=== PATIENT | female | born 1935 | race Caucasian/White ===

== ENCOUNTER 2017-03-17 10:04 | Inpatient (IN) | payer MEDICARE, BC ==
[~2017-03-17] VITALS: Ht 162.6 cm; Wt 95.0 kg
[~2017-03-17 10:04] MED LIST: ADVAIR 250/5028 PUFF; ADVIL PM 38 MG-1 TAB PO; AMLODIPINE10 MG PO; ASPERDRINK81 MG PO; ASPIRIN 325MG325 MG PO; AZO CRANBERRY250 MG PO; B12 INJ.,1000 MCG/M IM; BIOFREEZE118 ML TP; BREO ELLIPTA 21 EACH IH; CEFDINIR300 MG PO; CEFTIN 250MG T250 MG PO; CELEBREX 200MG200 MG PO; CENTRUM SILVER1 TAB PO; CLARITIN 10MG T10 MG PO; CLOPIDOGREL75 M1 PO; COLACE CLEAR50 MG PO; FERROUS SULFAT325 M2 PO; FLONASE 50 MCG16 GM; FUROSEMIDE 20MG20 MG FT; GABAPENTIN 400400 MG PO; GABAPENTIN100 M1; GENTLE LAXATIVE10 MG PR; IPRATROPIUM BROM3 M1 IH; KETOROLAC0.03 ML/DR OP; LEVAQUIN 750 M750 MG PO; LINZESS290 MCG PO; MAALOX ADVANCE355 ML; MACROBID100 M3 PO; MELATONIN1 MG PO; METFORMIN HCL1000 MG PO; METFORMIN1000 MG PO; MILK OF MA400 MG/51 PO; MIRALAX(PO17 GM/1 PA PO; NITROSTAT0.4 MG SL; NIZORAL 2%15 GM/TUBE TP; NYSTATIN C30 GM/TUBE EX; Novolog100 U/ML SQ; OMEGA 31000 MG PO; OMEPRAZOLE20 MG PO; OSCAL 500MG. T500 MG PO; POTASSIUM CHLO10 ME3 PO; PRAVASTATIN 40M40 MG PO; PRESERVISION A1 EACH PO; SILTUSSIN100 MG/51 PO; SYSTANE 0.3-0.1 EACH OP; TRAMADOL 50MG T50 M1 PO; TRAMADOL 50MG T50 MG PO; TRAZODONE100 MG; TRAZODONE100 MG PO; TYLENOL325 MG PO; ULTRAM50 MG; VITAMIN C500 M1 PO; VOLTAREN100 GM TP; ZITHROMAX 250M250 MG PO; ZOFRAN ODT4 MG
[2017-03-17 10:07] VITALS: BP 135/50
--- NOTE | 2017-03-17 10:23 | Emergency Room Report ---
History of Present Illness Time Seen by [id number] Presenting Problem in Triage Pt arrived:Ambulance Stretcher Presenting Problem:PT BROUGHT IN FOR LETHARGY, COUGH, LOW O2 SAT Onset of symptoms date/time:/ or onset unknown for:MEDICAL HX UNKNOWN Treatment Prior to Arrival: O2 DUONEB SALES REP Provided by:FUNNEL COATER Sepsis Risk Assessment: Temp: 100.0 B/P: 135/50 MAP: 78 Pulse: 105 Resp: 24 Recent fever? N Clinical Suspician of Infection? N Mental Status: 1 - Regular (Normal Baseline) Sepsis Risk:Possible Sepsis Risk Have you (or family members/close friends) recently traveled outside the [place]? N If Yes, where/when: Have you had exposure to infectious disease within the past month? N TB? Other? Specify: Comment [place] [facility] [place] saturation. She tells me that she has had a cough for 3-4 days and has shortness of breath that began today. She denies fever or chest pain. She denies rhinorrhea or sore throat. She denies vomiting. She was admitted to this hospital in December for 3 days due to pneumonia. Symptoms are the same now. She has a history of a stroke with LEFT hemiparesis and has a suprapubic catheter. ALLERGIES Coded Allergies: No Known Allergies (08/14/15) Home Medications Active Scripts Levofloxacin (Levaquin 750mg) 750 MG PO DAILY #4 TAB Prov: 12/24/16 ALBUTEROL-IPRATROPIUM (Iprat-Albut 0.5-3(2.5) MG/3 Ml) 3 ML IH QID #60 NEB Prov: 12/24/16 ASPIRIN (Aspirin 325MG) 325 MG PO DAILY #30 TAB Ref 5 Prov: 09/01/13 CLOPIDOGREL BISULFATE (Clopidogrel) 75 MG PO DAILY #30 TAB Ref 5 Prov: 09/01/13 Reported Medications CRANBERRY FRUIT CONCENTRATE (Azo Cranberry) 250 MG PO DAILY Bisacodyl (Laxative Suppository) 1 SUPP OR DAILYP PRN CONSTIPATION Celecoxib (Celebrex 200MG) 200 MG PO DAILY Loratadine (Claritin 10MG) 10 MG PO DAILY Docusate Sodium (Colace Clear) 50 MG PO DAILY ALBUTEROL-IPRATROPIUM (Iprat-Albut 0.5-3(2.5) MG/3 Ml) 1 NEB IH BID GABAPENTIN (Gabapentin) 400 MG PO TID Linaclotide (Linzess 290MCG) 290 MCG PO DAILY Magnesium Hydroxide (Milk Of Magnesia U/D 30ML) 30 ML PO DAILYP PRN CONSTIPATION POLYETHYLENE GLYCOL (Miralax) 17 GM PO DAILY Nitroglycerin (Nitrostat) 0.4 MG SL DAILYP PRN CHEST PAIN INSULIN ASPART (Novolog) 0 SQ QID Omeprazole (Omeprazole 20MG) 20 MG PO DAILY Tramadol Hcl (Tramadol 50MG) 50 MG PO BID Fluticasone Propionate (Flonase 50 Mcg Nasal [place]) 2 SPRAY NA QHS Ketorolac Tromethamine (Ketorolac 0.5% Ophth Soln 5ML) 0.4 ML OP QID Ascorbic Acid (Vitamin C) 500 MG PO DAILY Fluticasone/Vilanterol (Breo Ellipta 200-25 Mcg INH) 1 PUFF IH DAILY Trazodone Hcl (Trazodone HCl) 100 MG PO QHS Melatonin 1 MG PO QHS Diclofenac Sodium (Voltaren) 2 GM TP BIDP PRN apply to any painful joint Menthol (Biofreeze) 118 ML TP TIDP PRN shoulders, wrist, thumb prn Ketoconazole (Nizoral 2% Cream; 15GRAM Tube) 2 EACH TP BIDP PRN under neck NYSTATIN (Nystatin Cr 100,000 Units/Gm 30GM) 15 GM EX TIDP PRN YEAST Amlodipine Besylate (Amlodipine) 10 MG PO DAILY PRAVASTATIN SODIUM (Pravastatin Sodium) 20 MG PO QHS Vit A/Vit C/Vit E/Zinc/Copper (Preservision Areds Tablet) 1 EACH PO DAILY Vitamin B12 (Cyanocobalamin Injection) 1,000 MCG IM WEEKLY Ferrous Sulfate (Ferrous Sulfate 325MG) 325 MG PO DAILY METFORMIN HCL (Metformin 1000MG) 1,000 MG PO BID TRAMADOL HCL (Tramadol) 50 MG PO QIDP PRN PAIN Diphenhydramine Citrate/Ibup (Advil Pm 38 Mg-200 Mg) 1 TAB PO QHSP PRN INSOMNIA/ PAIN Guaifenesin (Siltussin SA) History Medical History General CAD? Yes Angina: No [place]: No Hypertension? Yes Hyperlipidemia? Yes CHF? No DVT? No PE? No COPD? No Asthma? No Anemia? No GERD? No Gastric ulcers? No GI Bleed? No Hernia? No Thyroid Problems? No Hypothyroidism? No CVA? Yes Seizures? No Diabetes? Yes Insulin Dependent: No Insulin Pump: No Home FSBS? Yes Renal Insuffiency? No End Stage Renal Disease? No UTI? Yes Stones? No BPH? No GB Disease: Yes Nephritic Syndrome? No Asplenia? No Hepatitis? No Sickle Cell Disease? No Arthritis? Yes Migraines? No Cataracts? No Glaucoma? No MRSA? No HIV? No TB? No Anxiety? No Depression? No Cancer? Yes Site: SCC and BCC skin lesions More? No Immunization Hx DT/Tetanus > 10 Years Ago Flu 2012-FSN Pneumonia Received In Past Surgical Hx Previous Surgery?Y GALLBLADDER Hernia Repair THUMB Family History Family Hx Diabetes No CAD No Hypertension Yes Hyperlipidemia No Cancer Yes TB No Social History Smoking Hx Smoker: Former Smoker Tobacco: Yes Type Cigarettes Packs/day N/A Alcohol Alcohol: No Review of Systems All Other Systems Reviewed and Negative Constitutional denies fever Respiratory cough, shortness of breath Cardiovascular denies chest pain Gastrointestinal denies abdominal pain, denies diarrhea, denies vomiting Physical Exam Vital Signs Vital Signs Date Time Temp Pulse Resp B/P Pulse O2 O2 Flow FiO2 Ox Delivery Rate 03/17 1211 99.7 88 24 122/62 97 3 03/17 1110 98 24 129/57 97 3 03/17 1036 102 24 139/67 96 3 03/17 1030 84 03/17 1007 100.0 105 24 135/50 83 General Appearance alert and conversant. Debilitated. LEFT hemiparesis. Eye Exam - bilateral eye normal exam, bilateral eye PERRL, bilateral eye EOMI Ear, Nose, Throat hearing grossly normal, normal ENT inspection Neck normal inspection, non-tender, supple, full range of motion Respiratory Status Yes: trachea midline, chest symmetrical, non tender chest. No: respiratory distress. Lung Sounds bilateral: rhonchi. 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 No Results/Orders Laboratory Tests 03/17/17 1010: Lactic Acid 1.5 03/17/17 1010: Sodium 138, Potassium 3.9, Chloride 100, Carbon Dioxide 30, BUN 15, Creatinine 1.0, Estimated Creat Clear 78, Estimated GFR (MDRD) 53 L, Glucose 154 H, Calcium 8.9, Total Bilirubin 0.6, AST 15, ALT 20, Alkaline Phosphatase 119 H, Creatine Kinase 79, CK-MB (CK-2) Rel Index 0.6, CK and CKMB Interp < 0.5, Troponin I < 0.02, Total Protein 8.3 H, Albumin 2.8 L, Globulin 5.5 H, Albumin/Globulin Ratio 0.5 L, WBC 17.2 H, RBC 4.21, Hgb 11.5 L, Hct 36.8 L, MCV 87.5, RDW 14.8, Plt Count 344, MPV 7.7, Gran % 75.9, Gran # 13.1 H, Total Counted 100, Lymphocytes % 14.7, Monocytes % 8.1, Eosinophils % 0.9, Basophils % 0.3, Neutrophils 70, Lymphocytes (Manual) 19, Lymphocytes # 2.5, Monocytes ( Manual) 10 H, Monocytes # 1.4 H, Eosinophils # 0.2, Eosinophils # (Manual) 1, Basophils # 0.1, Platelet Estimate NORMAL, Hypochromasia 1+, PUBS MCHC 31.4 L, MCH 27.4 Current Medication Orders Sig/Marta Start time Last Medication Dose Route Stop Time Status Admin Amlodipine Besylate 10 MG DAILY 03/18 900 AC PO Clopidogrel Bisulfate 75 MG DAILY 03/18 900 AC PO Levofloxacin/Dextrose 150 ML DAILY 03/18 900 AC IV 03/22 1030 Cefepime HCl 1 GM Q12 03/17 2100 AC Sodium Chloride 50 ML IV Pravastatin Sodium 20 MG QHS 03/17 2100 AC PO Albuterol/Ipratropium 3 ML QIDRT 03/17 1400 AC 03/17 INH 1310 Vancomycin HCl 2,000 MG Q24H 03/17 1300 AC Sodium Chloride 250 ML IV Diagnostic Test (Pha) 1 EACH W/MEALS&HS 03/17 1200 AC FS 05/16 1159 Insulin Human [rDNA See Dose W/MEALS&HS 03/17 1200 AC origin] Insts (1) SC Acetaminophen 650 MG Q4HP PRN 03/17 1145 AC PO Influenza Virus 0.5 ML PRN PRN 03/17 1145 AC Vaccine Quadrival IM Miscellaneous 1 EACH CONSULT PHARMACY 03/17 1145 AC Information * 03/17 2335 Nicotine 21 MG DAILYP PRN 03/17 1145 AC TD Sodium Chloride 10 ML PRN PRN 03/17 1145 AC IV Cefepime HCl 2 GM ONCE ONE 03/17 1115 DC Sodium Chloride 100 ML IV 03/17 1144 Levofloxacin/Dextrose 150 ML ONCE ONE 03/17 1115 DCr 03/17 IV 03/17 1244 1109 Miscellaneous 1 EACH CONSULT PHARMACY 03/17 1115 AC Information * 03/17 2313 Albuterol/Ipratropium 3 ML ONCE ONE 03/17 1015 DC 03/17 INH 03/17 1016 1021 Sodium Chloride 10 ML PRN PRN 03/17 1015 AC IV 03/18 1011 Dose Instructions: (1)Insulin Human [rDNA origin]: SEE ADMIN CRITERIA FOR MEDIUM INTENSITY Orders Procedure Date/time Status DIET-2000 CALORIE ADA 03/17 D Active PHARMACIST CONSULT 03/17 1137 Active Decision to admit 03/17 1114 Active CULTURE, SPUTUM 03/17 1113 Active OXYGEN PER NURSE 03/17 1029 Active RT Aerosol Treatment, Provide 03/17 1023 Active ELECTROCARDIOGRAM REQUEST 03/17 1012 Active RT REQUEST DUONEB 03/17 1012 Active IV SALINE LOCK 03/17 1012 Active CULTURE, BLOOD 03/17 1012 Active LACTIC ACID 03/17 1012 Complete CBC WITH AUTO DIFF 03/17 1012 Complete CARDIAC ENZYMES 03/17 1012 Complete CHEM 12 PROFILE 03/17 1012 Complete DIFFERENTIAL-WBC 03/17 1010 Complete ADMIT PATIENT 03/17 UNK Active 12 LEAD EKG-BESSON (INITIAL) 03/17 UNK Active PULSE OXIMETRY REQUEST 03/17 UNK Active OXYGEN REQUEST 03/17 UNK Active RT REQUEST DUONEB 03/17 UNK Active VITAL SIGNS 03/17 UNK Active POM NURSE BERONICA HOSE ORDER 03/17 UNK Active IV SALINE LOCK 03/17 UNK Active CODE STATUS 03/17 UNK Active PATIENT ACTIVITY ORDER 03/17 UNK Active CM/EKG CM/EKG Comments EKG interpreted by James Villalba MD: Rhythm: sinus tachycardia Rate: 104 [place]: normal Ectopy: none Conduction: normal ST Segment Changes: none T Wave Changes: none Q Waves: none No evidence of acute ischemia or injury XRAY/CT/US XRAY/CT/US XRAY chest Comment Chest x-ray interpreted by James Villalba M.D. Lingular and RIGHT basilar infiltrate Progress - 11:10 AM: I have discussed the case with Dr. Breen for Dr. Bangura who agrees to admit the patient to the hospital. We discussed the patient's clinical information, including history, exam, laboratory and radiology results and ED course. Per hospital procedure, I will write temporary bridge inpatient orders on the patient. Specific orders requested by the admitting physician: Admit to Dr. Breen. Triple antibiotic coverage. Departure Departure Disposition Still a Patient Clinical Impression Primary Impression: Healthcare-associated pneumonia Secondary Impressions: Acute respiratory failure with hypoxia Condition STABLE Referrals Marian Bangura MD (PCP/Family) ED Critical Care Critical Care Yes Time spent 30-74 min Vital system(s) involved: Respiratory Failure I was present at bedside for Coordinating pt's care, Interpreting EKGs/Strips , During my initial exam, Reviewing lab results, Reviewing old records, Discussing pt condition, Examining radiographs at 1318
[2017-03-17 10:33] LABS: HEMOGLOBIN 11.5 g/dL (12.2-16.2); LYMPH # 2.5 K/mm3 (0.7-4.5); LYMPH % 14.7 % (10-50.0)
--- NOTE | 2017-03-17 10:53 | RADIOLOGY REPORT PS360 ---
CHEST-PORTABLE COMPARISON: Portable upright chest 12/23/2016 HISTORY: Shortness of breath and cough TECHNIQUE: Portable upright chest FINDINGS: The patient is rotated to the left somewhat however the appears be diffuse opacity at left base and left perihilar region. There is partial silhouetting of the left heart border. The left upper lung field and right lung field are clear. There is suggestion of tapered narrowing or cutoff of the left mainstem bronchus shadow. There is mild generalized cardiomegaly but no vascular congestion. IMPRESSION: Findings suggestive of a left lower lobe pneumonia with probable reactive pleural effusion, suggest clinical correlation follow-up PA and lateral films following treatment and if there is not significant interval improvement and consider follow-up CT scan chest for better evaluation
[2017-03-17 10:59] LABS: BUN 15 mg/dL (7-18)
[2017-03-17 11:00] LABS: GFR (ESTIMATED) 53 ML/MIN (59-); NEUTROPHILS 70 % (42-76)
--- NOTE | 2017-03-17 12:24 | CONSULT NOTE ---
Pharmacokinetic Consult Date of consult: 03/17/17 Time of consult: 1221 Referring provider: DR. LANG Reason for consult: VANCOMYCIN DOSING Allergies: Coded Allergies: No Known Allergies (08/14/15) Home Medications: Active Scripts Levofloxacin (Levaquin 750mg) 750 MG PO DAILY #4 TAB Prov: 12/24/16 ALBUTEROL-IPRATROPIUM (Iprat-Albut 0.5-3(2.5) MG/3 Ml) 3 ML IH QID #60 NEB Prov: 12/24/16 ASPIRIN (Aspirin 325MG) 325 MG PO DAILY #30 TAB Ref 5 Prov: 09/01/13 CLOPIDOGREL BISULFATE (Clopidogrel) 75 MG PO DAILY #30 TAB Ref 5 Prov: 09/01/13 Reported Medications CRANBERRY FRUIT CONCENTRATE (Azo Cranberry) 250 MG PO DAILY Bisacodyl (Laxative Suppository) 1 SUPP CA DAILYP PRN CONSTIPATION Celecoxib (Celebrex 200MG) 200 MG PO DAILY Loratadine (Claritin 10MG) 10 MG PO DAILY Docusate Sodium (Colace Clear) 50 MG PO DAILY ALBUTEROL-IPRATROPIUM (Iprat-Albut 0.5-3(2.5) MG/3 Ml) 1 NEB IH BID GABAPENTIN (Gabapentin) 400 MG PO TID Linaclotide (Linzess 290MCG) 290 MCG PO DAILY Magnesium Hydroxide (Milk Of Magnesia U/D 30ML) 30 ML PO DAILYP PRN CONSTIPATION POLYETHYLENE GLYCOL (Miralax) 17 GM PO DAILY Nitroglycerin (Nitrostat) 0.4 MG SL DAILYP PRN CHEST PAIN INSULIN ASPART (Novolog) 0 SQ QID Omeprazole (Omeprazole 20MG) 20 MG PO DAILY Tramadol Hcl (Tramadol 50MG) 50 MG PO BID Fluticasone Propionate (Flonase 50 Mcg Nasal [place]) 2 SPRAY NA QHS Ketorolac Tromethamine (Ketorolac 0.5% Ophth Soln 5ML) 0.4 ML OP QID Ascorbic Acid (Vitamin C) 500 MG PO DAILY Fluticasone/Vilanterol (Breo Ellipta 200-25 Mcg INH) 1 PUFF IH DAILY Trazodone Hcl (Trazodone HCl) 100 MG PO QHS Melatonin 1 MG PO QHS Diclofenac Sodium (Voltaren) 2 GM TP BIDP PRN apply to any painful joint Menthol (Biofreeze) 118 ML TP TIDP PRN shoulders, wrist, thumb prn Ketoconazole (Nizoral 2% Cream; 15GRAM Tube) 2 EACH TP BIDP PRN under neck NYSTATIN (Nystatin Cr 100,000 Units/Gm 30GM) 15 GM EX TIDP PRN YEAST Amlodipine Besylate (Amlodipine) 10 MG PO DAILY PRAVASTATIN SODIUM (Pravastatin Sodium) 20 MG PO QHS Vit A/Vit C/Vit E/Zinc/Copper (Preservision Areds Tablet) 1 EACH PO DAILY Vitamin B12 (Cyanocobalamin Injection) 1,000 MCG IM WEEKLY Ferrous Sulfate (Ferrous Sulfate 325MG) 325 MG PO DAILY METFORMIN HCL (Metformin 1000MG) 1,000 MG PO BID TRAMADOL HCL (Tramadol) 50 MG PO QIDP PRN PAIN Diphenhydramine Citrate/Ibup (Advil Pm 38 Mg-200 Mg) 1 TAB PO QHSP PRN INSOMNIA/ PAIN Guaifenesin (Siltussin SA) Height (feet): 5 Height (inches): 4.00 Medical History: CAD? Yes Angina: No [place]: No Hypertension? Yes Hyperlipidemia? Yes CHF? No DVT? No PE? No COPD? No Asthma? No Anemia? No GERD? No Gastric ulcers? No GI Bleed? No Hernia? No Thyroid Problems? No Hypothyroidism? No CVA? Yes Seizures? No Diabetes? Yes Insulin Dependent: No Insulin Pump: No Home FSBS? Yes Renal Insuffiency? No UTI? Yes Stones? No BPH? No GB Disease: Yes Nephritic Syndrome? No Asplenia? No Hepatitis? No Sickle Cell Disease? No Arthritis? Yes Migraines? No Cataracts? No Glaucoma? No MRSA? No HIV? No TB? No Anxiety? No Depression? No Cancer? Yes Site: SCC and BCC skin lesions More? No Labs: Laboratory Tests 03/17/17 1010: Lactic Acid 1.5 03/17/17 1010: Sodium 138, Potassium 3.9, Chloride 100, Carbon Dioxide 30, BUN 15, Creatinine 1.0, Estimated Creat Clear 78, Estimated GFR (MDRD) 53 L, Glucose 154 H, Calcium 8.9, Total Bilirubin 0.6, AST 15, ALT 20, Alkaline Phosphatase 119 H, Creatine Kinase 79, CK-MB (CK-2) Rel Index 0.6, CK and CKMB Interp < 0.5, Troponin I < 0.02, Total Protein 8.3 H, Albumin 2.8 L, Globulin 5.5 H, Albumin/Globulin Ratio 0.5 L, WBC 17.2 H, RBC 4.21, Hgb 11.5 L, Hct 36.8 L, MCV 87.5, RDW 14.8, Plt Count 344, MPV 7.7, Gran % 75.9, Gran # 13.1 H, Total Counted 100, Lymphocytes % 14.7, Monocytes % 8.1, Eosinophils % 0.9, Basophils % 0.3, Neutrophils 70, Lymphocytes (Manual) 19, Lymphocytes # 2.5, Monocytes ( Manual) 10 H, Monocytes # 1.4 H, Eosinophils # 0.2, Eosinophils # (Manual) 1, Basophils # 0.1, Platelet Estimate NORMAL, Hypochromasia 1+, PUBS MCHC 31.4 L, MCH 27.4 Microbiology 03/17 1113 SPUTUM: Sputum Culture - ORD 03/17 1113 SPUTUM: Gram Stain - ORD 03/17 1010 BLOOD: Anaerobic Blood Culture - RECD 03/17 1010 BLOOD: Aerobic Blood Culture - RECD 03/17 1010 BLOOD: Anaerobic Blood Culture - RECD 03/17 1010 BLOOD: Aerobic Blood Culture - RECD Problem List: 1. Healthcare-associated pneumonia Plan: BASED ON PATIENT'S FACTORS, RECOMMEND STARTING WITH VANCOMYCIN 2 GM Q24H AT THIS TIME. PATIENT IS ALSO RECEIVING CEFEPIME 1 GM Q12H AND LEVOFLOXACIN 750 MG Q24H WELL. PHARMACY WILL FOLLOW DAILY AND ADJUST APPROPRIATE. DAVIN WALSHD at [id number]
--- NOTE | 2017-03-17 12:58 | HISTORY AND PHYSICAL REPORT ---
History and Physical (FCA) Date of admission: 03/17/17 Chief complaint: SOB History: History of Present Illness: Ms Franklin is an 81 year old female resident of [place] with an extensive medical history to include T2DM, Stroke with left hemiparesis, carotid artery disease, hyperlipidemia, OA, and neurogenic bladder with ellis cath and frequent UTI. She has had a cough for about a week with progressive SOB. She is on daily neb treatments and was hospitalized this past December with pneumonia. This AM O2 sats were in the 70's. She seemed to be more dyspneic. Staff was directed to bring her to [facility] for evaluation. Patient also noted that she was not eating or drinking well. Evaluation in the ER revealed Pneumonia. WBC's were elevated. She was admitted for IV ABX and continued neb TX's. With exam she denies CP but remains SOB with even talking. Past Medical History: Medical History: CAD? Yes Angina: No VA: No Hypertension? Yes Hyperlipidemia? Yes CHF? Yes DVT? No PE? No COPD? No Asthma? No Anemia? Yes GERD? Yes Gastric ulcers? No GI Bleed? No Hernia? No Thyroid Problems? No Hypothyroidism? No CVA? Yes Seizures? No Diabetes? Yes Insulin Dependent: No Insulin Pump: No Home FSBS? Yes Renal Insuffiency? No UTI? Yes Stones? No BPH? No GB Disease: Yes Nephritic Syndrome? No Asplenia? No Hepatitis? No Sickle Cell Disease? No Arthritis? Yes Migraines? No Cataracts? No Glaucoma? No MRSA? No HIV? No TB? No Anxiety? No Depression? No Cancer? Yes Site: SCC and BCC skin lesions More? No Additional hx: neurogenic bladder carotid artery disease Surgical history: Previous Surgery?Y GALLBLADDER Hernia Repair THUMB Medications: Active Scripts Levofloxacin (Levaquin 750mg) 750 MG PO DAILY #4 TAB Prov: 12/24/16 ALBUTEROL-IPRATROPIUM (Iprat-Albut 0.5-3(2.5) MG/3 Ml) 3 ML IH QID #60 NEB Prov: 12/24/16 ASPIRIN (Aspirin 325MG) 325 MG PO DAILY #30 TAB Ref 5 Prov: 09/01/13 CLOPIDOGREL BISULFATE (Clopidogrel) 75 MG PO DAILY #30 TAB Ref 5 Prov: 09/01/13 Reported Medications CRANBERRY FRUIT CONCENTRATE (Azo Cranberry) 250 MG PO DAILY Bisacodyl (Laxative Suppository) 1 SUPP [place] DAILYP PRN CONSTIPATION Celecoxib (Celebrex 200MG) 200 MG PO DAILY Loratadine (Claritin 10MG) 10 MG PO DAILY Docusate Sodium (Colace Clear) 50 MG PO DAILY ALBUTEROL-IPRATROPIUM (Iprat-Albut 0.5-3(2.5) MG/3 Ml) 1 NEB IH BID GABAPENTIN (Gabapentin) 400 MG PO TID Linaclotide (Linzess 290MCG) 290 MCG PO DAILY Magnesium Hydroxide (Milk Of Magnesia U/D 30ML) 30 ML PO DAILYP PRN CONSTIPATION POLYETHYLENE GLYCOL (Miralax) 17 GM PO DAILY Nitroglycerin (Nitrostat) 0.4 MG SL DAILYP PRN CHEST PAIN INSULIN ASPART (Novolog) 0 SQ QID Omeprazole (Omeprazole 20MG) 20 MG PO DAILY Tramadol Hcl (Tramadol 50MG) 50 MG PO BID Fluticasone Propionate (Flonase 50 Mcg Nasal [place]) 2 SPRAY NA QHS Ketorolac Tromethamine (Ketorolac 0.5% Ophth Soln 5ML) 0.4 ML OP QID Ascorbic Acid (Vitamin C) 500 MG PO DAILY Fluticasone/Vilanterol (Breo Ellipta 200-25 Mcg INH) 1 PUFF IH DAILY Trazodone Hcl (Trazodone HCl) 100 MG PO QHS Melatonin 1 MG PO QHS Diclofenac Sodium (Voltaren) 2 GM TP BIDP PRN apply to any painful joint Menthol (Biofreeze) 118 ML TP TIDP PRN shoulders, wrist, thumb prn Ketoconazole (Nizoral 2% Cream; 15GRAM Tube) 2 EACH TP BIDP PRN under neck NYSTATIN (Nystatin Cr 100,000 Units/Gm 30GM) 15 GM EX TIDP PRN YEAST Amlodipine Besylate (Amlodipine) 10 MG PO DAILY PRAVASTATIN SODIUM (Pravastatin Sodium) 20 MG PO QHS Vit A/Vit C/Vit E/Zinc/Copper (Preservision Areds Tablet) 1 EACH PO DAILY Vitamin B12 (Cyanocobalamin Injection) 1,000 MCG IM WEEKLY Ferrous Sulfate (Ferrous Sulfate 325MG) 325 MG PO DAILY METFORMIN HCL (Metformin 1000MG) 1,000 MG PO BID TRAMADOL HCL (Tramadol) 50 MG PO QIDP PRN PAIN Diphenhydramine Citrate/Ibup (Advil Pm 38 Mg-200 Mg) 1 TAB PO QHSP PRN INSOMNIA/ PAIN Guaifenesin (Siltussin SA) Allergies: Coded Allergies: No Known Allergies (08/14/15) Family History: Family history: Postive for: HTN, cancer. Social History: Smoking Hx Tobacco: No Smoker: Former Smoker Type: Cigarettes Packs/day: N/A Are you exposed to second hand No Alcohol: Alcohol: No Hx of Drug Use: Drug Use? No Review of Systems: Constitutional Positive for: weak. ENT No: ear ache, nasal congestion, sore throat. Cardiovascular Positive for: SOLIS. No: chest pain, edema, palpitations. Respiratory Positive for: shortness of air, productive cough (sputum). No: wheezing. GI Positive for: diarrhea. No: abdominal pain, constipation, hematemeis, hematochezia, melena, nausea, vomitting. (female) No: hematuria (ellis cath). Neurological Positive for: headache. No: confusion, dizziness, seizure, syncope. Musculoskeletal Positive for: joint pain. Additional information: has left sided weakness; usually is OOB daily into her wheelchair Physical Exam: Vital signs: 1ST Vital Signs Result Date Time Pulse Ox 83 03/17 1007 B/P 135/50 03/17 [facility] Temp 100.0 03/17 [facility] Pulse 105 03/17 1007 Resp 24 03/17 [facility] O2 Flow Rate 3 03/17 1036 Exam: General appearance: alert, awake, no acute distress Eyes: anicteric, pupils reactive to light ENT: mucous membranes moist, pharynx normal Neck: no carotid bruit, full range of motion, lymphadenopathy (absent), thyroid (normal) Cardiovascular: regular rate & rhythm, murmur Respiratory: coarse rhonchi throughout ABD: no guarding, bowel sounds present, obese Extremities: no peripheral edema, left sided weakness Neuro: alert, oriented, speech clear Lab data: Labs: Laboratory Tests 03/17/17 1010: Lactic Acid 1.5 03/17/17 1010: Sodium 138, Potassium 3.9, Chloride 100, Carbon Dioxide 30, BUN 15, Creatinine 1.0, Estimated Creat Clear 78, Estimated GFR (MDRD) 53 L, Glucose 154 H, Calcium 8.9, Total Bilirubin 0.6, AST 15, ALT 20, Alkaline Phosphatase 119 H, Creatine Kinase 79, CK-MB (CK-2) Rel Index 0.6, CK and CKMB Interp < 0.5, Troponin I < 0.02, Total Protein 8.3 H, Albumin 2.8 L, Globulin 5.5 H, Albumin/Globulin Ratio 0.5 L, WBC 17.2 H, RBC 4.21, Hgb 11.5 L, Hct 36.8 L, MCV 87.5, RDW 14.8, Plt Count 344, MPV 7.7, Gran % 75.9, Gran # 13.1 H, Total Counted 100, Lymphocytes % 14.7, Monocytes % 8.1, Eosinophils % 0.9, Basophils % 0.3, Neutrophils 70, Lymphocytes (Manual) 19, Lymphocytes # 2.5, Monocytes ( Manual) 10 H, Monocytes # 1.4 H, Eosinophils # 0.2, Eosinophils # (Manual) 1, Basophils # 0.1, Platelet Estimate NORMAL, Hypochromasia 1+, PUBS MCHC 31.4 L, MCH 27.4 Microbiology 03/17 1113 SPUTUM: Sputum Culture - ORD 03/17 1113 SPUTUM: Gram Stain - ORD 03/17 1010 BLOOD: Anaerobic Blood Culture - RECD 03/17 1010 BLOOD: Aerobic Blood Culture - RECD 03/17 1010 BLOOD: Anaerobic Blood Culture - RECD 03/17 1010 BLOOD: Aerobic Blood Culture - RECD Radiology results: Results: 03/17/17 CXR IMPRESSION: Findings suggestive of a left lower lobe pneumonia with probable reactive pleural effusion, suggest clinical correlation follow-up PA and lateral films following treatment and if there is not significant interval improvement and consider follow-up CT scan chest for better evaluation Diagnosis(es): 1. Healthcare-associated pneumonia 2. Acute respiratory failure with hypoxia 3. Hemiparesis affecting left side as late effect of cerebrovascular accident Status: Chronic 4. GERD (gastroesophageal reflux disease) 5. Chronic cystitis 6. Neurogenic bladder 7. Type 2 diabetes mellitus Status: Chronic 8. Carotid stenosis, left Status: Acute 9. Acute ischemic stroke Status: Acute 10. Osteoarthritis Status: Chronic 11. Hyperlipemia Status: Chronic 12. Hypertension Status: Chronic Plan: pneumonia protocol with ABX and nebs (Radha Chowdhury APRN) Diagnosis(es): 1. Healthcare-associated pneumonia 2. Acute respiratory failure with hypoxia 3. Hemiparesis affecting left side as late effect of cerebrovascular accident Status: Chronic 4. GERD (gastroesophageal reflux disease) 5. Chronic cystitis 6. Neurogenic bladder 7. Type 2 diabetes mellitus Status: Chronic 8. Carotid stenosis, left Status: Acute 9. Acute ischemic stroke Status: Acute 10. Osteoarthritis Status: Chronic 11. Hyperlipemia Status: Chronic 12. Hypertension Status: Chronic Plan: Patient seen and agree with above note. (Stalin Breen MD) at 1440 at 1750
--- NOTE | 2017-03-17 12:58 | HISTORY AND PHYSICAL REPORT ---
History and Physical (FCA) Date of admission: 03/17/17 Chief complaint: SOB History: History of Present Illness: Ms Franklin is an 81 year old female resident of [place] with an extensive medical history to include T2DM, Stroke with left hemiparesis, carotid artery disease, hyperlipidemia, OA, and neurogenic bladder with ellis cath and frequent UTI. She has had a cough for about a week with progressive SOB. She is on daily neb treatments and was hospitalized this past December with pneumonia. This AM O2 sats were in the 70's. She seemed to be more dyspneic. Staff was directed to bring her to [facility] for evaluation. Patient also noted that she was not eating or drinking well. Evaluation in the ER revealed Pneumonia. WBC's were elevated. She was admitted for IV ABX and continued neb TX's. With exam she denies CP but remains SOB with even talking. Past Medical History: Medical History: CAD? Yes Angina: No IA: No Hypertension? Yes Hyperlipidemia? Yes CHF? Yes DVT? No PE? No COPD? No Asthma? No Anemia? Yes GERD? Yes Gastric ulcers? No GI Bleed? No Hernia? No Thyroid Problems? No Hypothyroidism? No CVA? Yes Seizures? No Diabetes? Yes Insulin Dependent: No Insulin Pump: No Home FSBS? Yes Renal Insuffiency? No UTI? Yes Stones? No BPH? No GB Disease: Yes Nephritic Syndrome? No Asplenia? No Hepatitis? No Sickle Cell Disease? No Arthritis? Yes Migraines? No Cataracts? No Glaucoma? No MRSA? No HIV? No TB? No Anxiety? No Depression? No Cancer? Yes Site: SCC and BCC skin lesions More? No Additional hx: neurogenic bladder carotid artery disease Surgical history: Previous Surgery?Y GALLBLADDER Hernia Repair THUMB Medications: Active Scripts Levofloxacin (Levaquin 750mg) 750 MG PO DAILY #4 TAB Prov: 12/24/16 ALBUTEROL-IPRATROPIUM (Iprat-Albut 0.5-3(2.5) MG/3 Ml) 3 ML IH QID #60 NEB Prov: 12/24/16 ASPIRIN (Aspirin 325MG) 325 MG PO DAILY #30 TAB Ref 5 Prov: 09/01/13 CLOPIDOGREL BISULFATE (Clopidogrel) 75 MG PO DAILY #30 TAB Ref 5 Prov: 09/01/13 Reported Medications CRANBERRY FRUIT CONCENTRATE (Azo Cranberry) 250 MG PO DAILY Bisacodyl (Laxative Suppository) 1 SUPP [place] DAILYP PRN CONSTIPATION Celecoxib (Celebrex 200MG) 200 MG PO DAILY Loratadine (Claritin 10MG) 10 MG PO DAILY Docusate Sodium (Colace Clear) 50 MG PO DAILY ALBUTEROL-IPRATROPIUM (Iprat-Albut 0.5-3(2.5) MG/3 Ml) 1 NEB IH BID GABAPENTIN (Gabapentin) 400 MG PO TID Linaclotide (Linzess 290MCG) 290 MCG PO DAILY Magnesium Hydroxide (Milk Of Magnesia U/D 30ML) 30 ML PO DAILYP PRN CONSTIPATION POLYETHYLENE GLYCOL (Miralax) 17 GM PO DAILY Nitroglycerin (Nitrostat) 0.4 MG SL DAILYP PRN CHEST PAIN INSULIN ASPART (Novolog) 0 SQ QID Omeprazole (Omeprazole 20MG) 20 MG PO DAILY Tramadol Hcl (Tramadol 50MG) 50 MG PO BID Fluticasone Propionate (Flonase 50 Mcg Nasal [place]) 2 SPRAY NA QHS Ketorolac Tromethamine (Ketorolac 0.5% Ophth Soln 5ML) 0.4 ML OP QID Ascorbic Acid (Vitamin C) 500 MG PO DAILY Fluticasone/Vilanterol (Breo Ellipta 200-25 Mcg INH) 1 PUFF IH DAILY Trazodone Hcl (Trazodone HCl) 100 MG PO QHS Melatonin 1 MG PO QHS Diclofenac Sodium (Voltaren) 2 GM TP BIDP PRN apply to any painful joint Menthol (Biofreeze) 118 ML TP TIDP PRN shoulders, wrist, thumb prn Ketoconazole (Nizoral 2% Cream; 15GRAM Tube) 2 EACH TP BIDP PRN under neck NYSTATIN (Nystatin Cr 100,000 Units/Gm 30GM) 15 GM EX TIDP PRN YEAST Amlodipine Besylate (Amlodipine) 10 MG PO DAILY PRAVASTATIN SODIUM (Pravastatin Sodium) 20 MG PO QHS Vit A/Vit C/Vit E/Zinc/Copper (Preservision Areds Tablet) 1 EACH PO DAILY Vitamin B12 (Cyanocobalamin Injection) 1,000 MCG IM WEEKLY Ferrous Sulfate (Ferrous Sulfate 325MG) 325 MG PO DAILY METFORMIN HCL (Metformin 1000MG) 1,000 MG PO BID TRAMADOL HCL (Tramadol) 50 MG PO QIDP PRN PAIN Diphenhydramine Citrate/Ibup (Advil Pm 38 Mg-200 Mg) 1 TAB PO QHSP PRN INSOMNIA/ PAIN Guaifenesin (Siltussin SA) Allergies: Coded Allergies: No Known Allergies (08/14/15) Family History: Family history: Postive for: HTN, cancer. Social History: Smoking Hx Tobacco: No Smoker: Former Smoker Type: Cigarettes Packs/day: N/A Are you exposed to second hand No Alcohol: Alcohol: No Hx of Drug Use: Drug Use? No Review of Systems: Constitutional Positive for: weak. ENT No: ear ache, nasal congestion, sore throat. Cardiovascular Positive for: SOLIS. No: chest pain, edema, palpitations. Respiratory Positive for: shortness of air, productive cough (sputum). No: wheezing. GI Positive for: diarrhea. No: abdominal pain, constipation, hematemeis, hematochezia, melena, nausea, vomitting. (female) No: hematuria (ellis cath). Neurological Positive for: headache. No: confusion, dizziness, seizure, syncope. Musculoskeletal Positive for: joint pain. Additional information: has left sided weakness; usually is OOB daily into her wheelchair Physical Exam: Vital signs: 1ST Vital Signs Result Date Time Pulse Ox 83 03/17 1007 B/P 135/50 [facility] Temp 100.0 03/17 [facility] Pulse 105 03/17 1007 Resp 24 03/17 [facility] O2 Flow Rate 3 03/17 1036 Exam: General appearance: alert, awake, no acute distress Eyes: anicteric, pupils reactive to light ENT: mucous membranes moist, pharynx normal Neck: no carotid bruit, full range of motion, lymphadenopathy (absent), thyroid (normal) Cardiovascular: regular rate & rhythm, murmur Respiratory: coarse rhonchi throughout ABD: no guarding, bowel sounds present, obese Extremities: no peripheral edema, left sided weakness Neuro: alert, oriented, speech clear Lab data: Labs: Laboratory Tests 03/17/17 1010: Lactic Acid 1.5 03/17/17 1010: Sodium 138, Potassium 3.9, Chloride 100, Carbon Dioxide 30, BUN 15, Creatinine 1.0, Estimated Creat Clear 78, Estimated GFR (MDRD) 53 L, Glucose 154 H, Calcium 8.9, Total Bilirubin 0.6, AST 15, ALT 20, Alkaline Phosphatase 119 H, Creatine Kinase 79, CK-MB (CK-2) Rel Index 0.6, CK and CKMB Interp < 0.5, Troponin I < 0.02, Total Protein 8.3 H, Albumin 2.8 L, Globulin 5.5 H, Albumin/Globulin Ratio 0.5 L, WBC 17.2 H, RBC 4.21, Hgb 11.5 L, Hct 36.8 L, MCV 87.5, RDW 14.8, Plt Count 344, MPV 7.7, Gran % 75.9, Gran # 13.1 H, Total Counted 100, Lymphocytes % 14.7, Monocytes % 8.1, Eosinophils % 0.9, Basophils % 0.3, Neutrophils 70, Lymphocytes (Manual) 19, Lymphocytes # 2.5, Monocytes ( Manual) 10 H, Monocytes # 1.4 H, Eosinophils # 0.2, Eosinophils # (Manual) 1, Basophils # 0.1, Platelet Estimate NORMAL, Hypochromasia 1+, PUBS MCHC 31.4 L, MCH 27.4 Microbiology 03/17 1113 SPUTUM: Sputum Culture - ORD 03/17 1113 SPUTUM: Gram Stain - ORD 03/17 1010 BLOOD: Anaerobic Blood Culture - RECD 03/17 1010 BLOOD: Aerobic Blood Culture - RECD 03/17 1010 BLOOD: Anaerobic Blood Culture - RECD 03/17 1010 BLOOD: Aerobic Blood Culture - RECD Radiology results: Results: 03/17/17 CXR IMPRESSION: Findings suggestive of a left lower lobe pneumonia with probable reactive pleural effusion, suggest clinical correlation follow-up PA and lateral films following treatment and if there is not significant interval improvement and consider follow-up CT scan chest for better evaluation Diagnosis(es): 1. Healthcare-associated pneumonia 2. Acute respiratory failure with hypoxia 3. Hemiparesis affecting left side as late effect of cerebrovascular accident Status: Chronic 4. GERD (gastroesophageal reflux disease) 5. Chronic cystitis 6. Neurogenic bladder 7. Type 2 diabetes mellitus Status: Chronic 8. Carotid stenosis, left Status: Acute 9. Acute ischemic stroke Status: Acute 10. Osteoarthritis Status: Chronic 11. Hyperlipemia Status: Chronic 12. Hypertension Status: Chronic Plan: pneumonia protocol with ABX and nebs (Radha Chowdhury APRN) Diagnosis(es): 1. Healthcare-associated pneumonia 2. Acute respiratory failure with hypoxia 3. Hemiparesis affecting left side as late effect of cerebrovascular accident Status: Chronic 4. GERD (gastroesophageal reflux disease) 5. Chronic cystitis 6. Neurogenic bladder 7. Type 2 diabetes mellitus Status: Chronic 8. Carotid stenosis, left Status: Acute 9. Acute ischemic stroke Status: Acute 10. Osteoarthritis Status: Chronic 11. Hyperlipemia Status: Chronic 12. Hypertension Status: Chronic Plan: Patient seen and agree with above note. (Stalin Breen MD) at 1440 at 1750
[2017-03-17 13:17] VITALS: BP 135/76
[2017-03-17 13:23] VITALS: BP 135/76
[2017-03-17 16:11] VITALS: BP 144/76
[2017-03-17 19:34] VITALS: BP 152/64
[2017-03-17 23:47] VITALS: BP 140/72
[2017-03-18] VITALS (8 sets, daily range): BP systolic 138–164; BP diastolic 65–77
--- NOTE | 2017-03-18 07:26 | PHARMACY CLINIC NOTE ---
Patient Demographics Patient Demographics Admission date: 03/17/17 Date: 03/18/17 Time: 07 Allergies Coded Allergies: No Known Allergies (08/14/15) HEIGHT- FT: 5 IN: 4.00 K.275 VTE General Information Labs: Laboratory Tests 03/17 1010 Hematology Hgb (12.2 - 16.2 g/dL) 11.5 L Hct (37.0 - 47.0 %) 36.8 L Plt Count (142 - 424 K/mm3) 344 Disclaimer The following section includes nursing documentation that has been pulled in for pharmacy review. Patient's VTE score: 5 Patient's VTE Risk: LOW RISK Clinical trial participant? No VTE prophylaxis [id number] VTE prophylaxis ordered? Yes Type of prophylaxis/treatment: BERONICA at 0726
--- NOTE | 2017-03-18 08:10 | ACUTE CARE PROGRESS NOTE (QUA) ---
Progress Notes Subjective Date 03/18/17 Time 0807 Note Pt states she is feeling much better than yesterday. She is coughing up sputum. She denies any pain. She did not sleep well last night and is tired today. She tried to eat her breakfast. Objective Findings Last VS-Temp:98.5 B/P:151/77 Pulse:109 Resp:22 SaO2:90 OXYGEN Last weight lbs:212 oz:4 K.275 Method:Bed Scales Laboratory Tests 03/18/17 0628: POC Glucose 140 H 03/17/17 2040: POC Glucose 142 H 03/17/17 1653: POC Glucose 143 H 03/17/17 1010: Lactic Acid 1.5 03/17/17 1010: Sodium 138, Potassium 3.9, Chloride 100, Carbon Dioxide 30, BUN 15, Creatinine 1.0, Estimated Creat Clear 78, Estimated GFR (MDRD) 53 L, Glucose 154 H, Calcium 8.9, Total Bilirubin 0.6, AST 15, ALT 20, Alkaline Phosphatase 119 H, Creatine Kinase 79, CK-MB (CK-2) Rel Index 0.6, CK and CKMB Interp < 0.5, Troponin I < 0.02, Total Protein 8.3 H, Albumin 2.8 L, Globulin 5.5 H, Albumin/Globulin Ratio 0.5 L, WBC 17.2 H, RBC 4.21, Hgb 11.5 L, Hct 36.8 L, MCV 87.5, RDW 14.8, Plt Count 344, MPV 7.7, Gran % 75.9, Gran # 13.1 H, Total Counted 100, Lymphocytes % 14.7, Monocytes % 8.1, Eosinophils % 0.9, Basophils % 0.3, Neutrophils 70, Lymphocytes (Manual) 19, Lymphocytes # 2.5, Monocytes ( Manual) 10 H, Monocytes # 1.4 H, Eosinophils # 0.2, Eosinophils # (Manual) 1, Basophils # 0.1, Platelet Estimate NORMAL, Hypochromasia 1+, PUBS MCHC 31.4 L, MCH 27.4 Microbiology 03/17 1446 SPUTUM: Sputum Culture - RES 03/17 1446 SPUTUM: Gram Stain - RES 03/17 1010 BLOOD: Anaerobic Blood Culture - RECD 03/17 1010 BLOOD: Aerobic Blood Culture - RECD 03/17 1010 BLOOD: Anaerobic Blood Culture - RECD 03/17 1010 BLOOD: Aerobic Blood Culture - RECD Exam General appearance: alert, awake, no acute distress Cardiovascular: regular rate & rhythm Respiratory: rhonchi throughout, better air movement ABD: non-distended, normal bowel sounds, no rebound, soft, no tenderness, no guarding Extremities: no peripheral edema Reviewed: CXR - LLL pneumonia with left pleural effusion Assessment/Plan Problem List 1. Healthcare-associated pneumonia 2. Acute respiratory failure with hypoxia 3. Hemiparesis affecting left side as late effect of cerebrovascular accident Status: Chronic 4. GERD (gastroesophageal reflux disease) 5. Chronic cystitis 6. Neurogenic bladder 7. Type 2 diabetes mellitus Status: Chronic 8. Carotid stenosis, left Status: Acute 9. Acute ischemic stroke Status: Acute 10. Osteoarthritis Status: Chronic 11. Hyperlipemia Status: Chronic 12. Hypertension Status: Chronic Plan: Will continue abx and repeat labs tomorrow. This inpt stay is expected to cross 2 MNs from start of care Yes (Parvin Rolle) Assessment/Plan Problem List 1. Healthcare-associated pneumonia 2. Acute respiratory failure with hypoxia 3. Hemiparesis affecting left side as late effect of cerebrovascular accident Status: Chronic 4. GERD (gastroesophageal reflux disease) 5. Chronic cystitis 6. Neurogenic bladder 7. Type 2 diabetes mellitus Status: Chronic 8. Carotid stenosis, left Status: Acute 9. Acute ischemic stroke Status: Acute 10. Osteoarthritis Status: Chronic 11. Hyperlipemia Status: Chronic 12. Hypertension Status: Chronic Comments: Patient seen and agree with above note. She is on triple antibiotic coverage pending cultures. (Stalin Breen MD) at 0810 at 0843
[2017-03-19 04:30] VITALS: BP 162/64
[2017-03-19 08:00] LABS: LYMPH # 1.9 K/mm3 (0.7-4.5); LYMPH % 17.9 % (10-50.0)
--- NOTE | 2017-03-19 08:21 | ACUTE CARE PROGRESS NOTE (QUA) ---
Progress Notes Subjective Date 03/19/17 Time 0816 Note Pt states she is feeling better today. She is still coughing but cannot cough anything up. She denies any pain. She slept better and is eating this am. Objective Findings Last VS-Temp:98.4 B/P:162/64 Pulse:103 Resp:22 SaO2:94 OXYGEN Last weight lbs:212 oz:5 K.303 Method:Bed Scales Laboratory Tests 03/19/17 0735: Sodium 142, Potassium 3.3 L, Chloride 105, Carbon Dioxide 33 H, BUN 9, Creatinine 0.8, Estimated Creat Clear 84, Estimated GFR (MDRD) 69, Glucose 149 H, Calcium 9.1, WBC 10.4, RBC 4.05 L, Hgb 11.0 L, Hct 35.1 L, MCV 86.6, RDW 14.5, Plt Count 398, MPV 7.7, Gran % 71.4, Gran # 7.4, Lymphocytes % 17.9, Monocytes % 7.1, Eosinophils % 2.9, Basophils % 0.6, Lymphocytes # 1.9, Monocytes # 0.7, Eosinophils # 0.3, Basophils # 0.1, PUBS MCHC 31.2 L, MCH 27.0 03/18/17 1705: POC Glucose 134 H 03/18/17 1126: POC Glucose 159 H Exam General appearance: alert, awake, no acute distress Cardiovascular: regular rate & rhythm Respiratory: rhonchi and course breath sounds bilaterally ABD: non-distended, normal bowel sounds, no rebound, soft, no tenderness, no guarding Extremities: no peripheral edema Assessment/Plan Problem List 1. Healthcare-associated pneumonia 2. Acute respiratory failure with hypoxia 3. Hemiparesis affecting left side as late effect of cerebrovascular accident Status: Chronic 4. GERD (gastroesophageal reflux disease) 5. Chronic cystitis 6. Neurogenic bladder 7. Type 2 diabetes mellitus Status: Chronic 8. Carotid stenosis, left Status: Acute 9. Acute ischemic stroke Status: Acute 10. Osteoarthritis Status: Chronic 11. Hyperlipemia Status: Chronic 12. Hypertension Status: Chronic 13. Hypokalemia Plan: Still awaiting sputum culture but white count has improved. Will start on potassium due to hypokalemia. This inpt stay is expected to cross 2 MNs from start of care Yes (Parvin Rolle) Assessment/Plan Problem List 1. Healthcare-associated pneumonia 2. Acute respiratory failure with hypoxia 3. Hemiparesis affecting left side as late effect of cerebrovascular accident Status: Chronic 4. GERD (gastroesophageal reflux disease) 5. Chronic cystitis 6. Neurogenic bladder 7. Type 2 diabetes mellitus Status: Chronic 8. Carotid stenosis, left Status: Acute 9. Acute ischemic stroke Status: Acute 10. Osteoarthritis Status: Chronic 11. Hyperlipemia Status: Chronic 12. Hypertension Status: Chronic 13. Hypokalemia Comments: Patient seen and agree with above note. (Stalin Breen MD) at 0821 at 0852
[2017-03-19 08:30] VITALS: BP 157/86
[2017-03-19 14:20] VITALS: BP 95/57
--- NOTE | 2017-03-19 14:52 | CONSULT NOTE ---
Pharmacokinetic Consult Date of consult: 03/19/17 Time of consult: 1450 Referring provider: DR. LANG Reason for consult: VANCOMYCIN TROUGH LEVEL Allergies: Coded Allergies: No Known Allergies (08/14/15) Home Medications: Active Scripts ASPIRIN (Aspirin 325MG) 325 MG PO DAILY #30 TAB Ref 5 Prov: 09/01/13 CLOPIDOGREL BISULFATE (Clopidogrel) 75 MG PO DAILY #30 TAB Ref 5 Prov: 09/01/13 Reported Medications Celecoxib (Celebrex 200MG) 200 MG PO DAILY ALBUTEROL-IPRATROPIUM (Iprat-Albut 0.5-3(2.5) MG/3 Ml) 1 NEB IH QIDRT Guaifenesin (Siltussin SA) 5 ML PO Q6HP PRN COUGH Vitamin B12 (Cyanocobalamin Injection) 1,000 MCG IM WEEKLY Menthol (Biofreeze) 1 ROGELIO TP TIDP PRN INFLAMMATION Ketoconazole (Nizoral 2% Cream; 15GRAM Tube) 1 ROGELIO TP BIDP PRN ANTIFUNGAL NYSTATIN (Nystatin Cr 100,000 Units/Gm 30GM) 1 ROGELIO EX TIDP PRN YEAST CRANBERRY FRUIT CONCENTRATE (Azo Cranberry) 250 MG PO DAILY Bisacodyl (Laxative Suppository) 1 SUPP PA DAILYP PRN CONSTIPATION Loratadine (Claritin 10MG) 10 MG PO DAILY Docusate Sodium (Colace Clear) 50 MG PO DAILY GABAPENTIN (Gabapentin) 400 MG PO TID Linaclotide (Linzess 290MCG) 290 MCG PO DAILY Magnesium Hydroxide (Milk Of Magnesia U/D 30ML) 30 ML PO DAILYP PRN CONSTIPATION POLYETHYLENE GLYCOL (Miralax) 17 GM PO DAILY Nitroglycerin (Nitrostat) 0.4 MG SL DAILYP PRN CHEST PAIN INSULIN ASPART (Novolog) 0 SQ QID Omeprazole (Omeprazole 20MG) 20 MG PO DAILY Fluticasone Propionate (Flonase 50 Mcg Nasal [place]) 2 SPRAY NA QHS Ketorolac Tromethamine (Ketorolac 0.5% Ophth Soln 5ML) 0.4 ML OP QID Ascorbic Acid (Vitamin C) 500 MG PO DAILY Fluticasone/Vilanterol (Breo Ellipta 200-25 Mcg INH) 1 PUFF IH DAILY Trazodone Hcl (Trazodone HCl) 100 MG PO QHS Melatonin 1 MG PO QHS Amlodipine Besylate (Amlodipine) 10 MG PO DAILY PRAVASTATIN SODIUM (Pravastatin Sodium) 20 MG PO QHS Vit A/Vit C/Vit E/Zinc/Copper (Preservision Areds Tablet) 1 EACH PO DAILY Ferrous Sulfate (Ferrous Sulfate 325MG) 325 MG PO DAILY METFORMIN HCL (Metformin 1000MG) 1,000 MG PO BID TRAMADOL HCL (Tramadol) 50 MG PO QIDP PRN PAIN Diphenhydramine Citrate/Ibup (Advil Pm 38 Mg-200 Mg) 1 TAB PO QHSP PRN INSOMNIA/ PAIN Height (feet): 5 Height (inches): 4.00 Medical History: CAD? Yes Angina: No NC: No Hypertension? Yes Hyperlipidemia? Yes CHF? Yes DVT? No PE? No COPD? No Asthma? No Anemia? Yes GERD? Yes Gastric ulcers? No GI Bleed? No Hernia? No Thyroid Problems? No Hypothyroidism? No CVA? Yes Seizures? No Diabetes? Yes Insulin Dependent: No Insulin Pump: No Home FSBS? Yes Renal Insuffiency? No UTI? Yes Stones? No BPH? No GB Disease: Yes Nephritic Syndrome? No Asplenia? No Hepatitis? No Sickle Cell Disease? No Arthritis? Yes Migraines? No Cataracts? No Glaucoma? No MRSA? No HIV? No TB? No Anxiety? No Depression? No Cancer? Yes Site: SCC and BCC skin lesions More? No Additional hx: neurogenic bladder carotid artery disease Labs: Laboratory Tests 03/19/17 1255: Vancomycin Trough 11.7 03/19/17 1133: POC Glucose 157 H 03/19/17 0735: Sodium 142, Potassium 3.3 L, Chloride 105, Carbon Dioxide 33 H, BUN 9, Creatinine 0.8, Estimated Creat Clear 84, Estimated GFR (MDRD) 69, Glucose 149 H, Calcium 9.1, WBC 10.4, RBC 4.05 L, Hgb 11.0 L, Hct 35.1 L, MCV 86.6, RDW 14.5, Plt Count 398, MPV 7.7, Gran % 71.4, Gran # 7.4, Lymphocytes % 17.9, Monocytes % 7.1, Eosinophils % 2.9, Basophils % 0.6, Lymphocytes # 1.9, Monocytes # 0.7, Eosinophils # 0.3, Basophils # 0.1, PUBS MCHC 31.2 L, MCH 27.0 03/18/17 1705: POC Glucose 134 H Problem List: 1. Healthcare-associated pneumonia Plan: BASED ON PATIENT FACTORS, RECOMMEND CONTINUING VANCOMYCIN 2 GM IV Q24H. PHARMACY WILL CONTINUE TO MONITOR DAILY AND ADJUST APPROPRIATE. at [id number]
[2017-03-19 16:17] VITALS: BP 150/87
[2017-03-19 20:18] VITALS: BP 140/82
[2017-03-19 20:54] VITALS: BP 140/82
[2017-03-20] VITALS (17 sets, daily range): BP systolic 117–169; BP diastolic 55–85
--- NOTE | 2017-03-20 07:08 | CONSULT NOTE ---
Standard Demographics Patient Demo Date of Consultation: 03/20/17 Referring Provider: Stalin Breen MD Reason for Consultation: need tunneled catheter for antibiotics PRIMARY DIAGNOSIS: PNEUMONIA Allergies: Coded Allergies: No Known Allergies (08/14/15) History of Present Illness Chief Complaint: Need long-term antibiotics History of Present Illness: This is an 81-year-old female seen in consultation from Dr. Breen for establishing IV access for long-term antibiotics. She is being treated for complicated pneumonia. She has lost venous access and multiple attempts at establishing access have been unsuccessful. Past Medical History Reports: COPD, hypertension, diabetes mellitus. Surgical History Previous Surgery?Y GALLBLADDER Hernia Repair THUMB Allergies Coded Allergies: No Known Allergies (08/14/15) Medications: Active Scripts ASPIRIN (Aspirin 325MG) 325 MG PO DAILY #30 TAB Ref 5 Prov: 09/01/13 CLOPIDOGREL BISULFATE (Clopidogrel) 75 MG PO DAILY #30 TAB Ref 5 Prov: 09/01/13 Reported Medications Celecoxib (Celebrex 200MG) 200 MG PO DAILY ALBUTEROL-IPRATROPIUM (Iprat-Albut 0.5-3(2.5) MG/3 Ml) 1 NEB IH QIDRT Guaifenesin (Siltussin SA) 5 ML PO Q6HP PRN COUGH Vitamin B12 (Cyanocobalamin Injection) 1,000 MCG IM WEEKLY Menthol (Biofreeze) 1 ROGELIO TP TIDP PRN INFLAMMATION Ketoconazole (Nizoral 2% Cream; 15GRAM Tube) 1 ROGELIO TP BIDP PRN ANTIFUNGAL NYSTATIN (Nystatin Cr 100,000 Units/Gm 30GM) 1 ROGELIO EX TIDP PRN YEAST CRANBERRY FRUIT CONCENTRATE (Azo Cranberry) 250 MG PO DAILY Bisacodyl (Laxative Suppository) 1 SUPP MD DAILYP PRN CONSTIPATION Loratadine (Claritin 10MG) 10 MG PO DAILY Docusate Sodium (Colace Clear) 50 MG PO DAILY GABAPENTIN (Gabapentin) 400 MG PO TID Linaclotide (Linzess 290MCG) 290 MCG PO DAILY Magnesium Hydroxide (Milk Of Magnesia U/D 30ML) 30 ML PO DAILYP PRN CONSTIPATION POLYETHYLENE GLYCOL (Miralax) 17 GM PO DAILY Nitroglycerin (Nitrostat) 0.4 MG SL DAILYP PRN CHEST PAIN INSULIN ASPART (Novolog) 0 SQ QID Omeprazole (Omeprazole 20MG) 20 MG PO DAILY Fluticasone Propionate (Flonase 50 Mcg Nasal [place]) 2 SPRAY NA QHS Ketorolac Tromethamine (Ketorolac 0.5% Ophth Soln 5ML) 0.4 ML OP QID Ascorbic Acid (Vitamin C) 500 MG PO DAILY Fluticasone/Vilanterol (Breo Ellipta 200-25 Mcg INH) 1 PUFF IH DAILY Trazodone Hcl (Trazodone HCl) 100 MG PO QHS Melatonin 1 MG PO QHS Amlodipine Besylate (Amlodipine) 10 MG PO DAILY PRAVASTATIN SODIUM (Pravastatin Sodium) 20 MG PO QHS Vit A/Vit C/Vit E/Zinc/Copper (Preservision Areds Tablet) 1 EACH PO DAILY Ferrous Sulfate (Ferrous Sulfate 325MG) 325 MG PO DAILY METFORMIN HCL (Metformin 1000MG) 1,000 MG PO BID TRAMADOL HCL (Tramadol) 50 MG PO QIDP PRN PAIN Diphenhydramine Citrate/Ibup (Advil Pm 38 Mg-200 Mg) 1 TAB PO QHSP PRN INSOMNIA/ PAIN Family history Negative for: unknown. Smoking Hx Tobacco: No Smoker: Never Smoker Type: Cigarettes Packs/day: N/A Are you/the child exposed to second-hand smoke: No Alcohol Alcohol: No Hx of Drug Use Drug Use? No Review of Systems Constitutional No: recent weight loss. Skin No: abrasions. Immune/allergy No: anaphalaxis. ENT No: nose bleed. Respiratory Positive for: pneumonia. (female) No: hematuria. Heme No: petechia. Neurological No: seizure. Psychiatric No: anxious. Physical Exam VS/I&O Vital Signs Date Time Temp Pulse Resp B/P Pulse O2 O2 Flow FiO2 Ox Delivery Rate 03/20 0555 3 03/20 0555 95 3 03/20 0533 3 03/20 0501 3 03/20 419 3 03/20 419 97.6 108 20 152/84 88 OXYGEN 3 03/20 0307 3 03/20 0204 3 03/20 0056 3 03/20 0021 3 03/20 002 98.5 127 20 161/80 97 OXYGEN 3 03/19 2310 3 03/190 3 03/19 2054 3 03/19 2054 98.5 105 20 140/82 94 3 03/19 2018 3 03/19 2018 98.5 105 20 140/82 94 OXYGEN 3 03/19 1903 3 03/19 1849 3 03/19 1849 84 ROOM AIR 03/19 1722 3 03/19 1617 99.0 109 22 150/87 95 OXYGEN 03/19 1510 3 03/19 1420 98.4 95 20 95/57 98 OXYGEN 03/19 1235 3 03/19 1040 3 03/19 0900 98.6 102 22 157/86 92 3 03/19 0859 3 03/19 0830 98.6 102 22 157/86 92 OXYGEN I&O 03/20 0700 Intake Total 480 Output Total 1600 Balance -1120 Intake, Oral 480 Output, Stool Output, Urine 1600 Patient 93.979 kg Weight Exam General appearance no acute distress Respiratory no distress Cardiovascular regular rate and rhythm Abdomen soft Plan Plan: Impression: Inadequate venous access Complicated pneumonia requiring triple antibiotic therapy Plan: Tunneled catheter for long-term antibiotic therapy at 0707
--- NOTE | 2017-03-20 08:10 | ACUTE CARE PROGRESS NOTE (QUA) ---
Progress Notes Subjective Date 03/20/17 Time 0801 Note Patient with no new complaints today, feels better. Patient had numerous failed IV sticks yesterday, unable to get PICC line as ordered, she has no IV access now. Dr. Juarez consulted to gain IV access. Objective Findings Laboratory Tests 03/19/172049: POC Glucose 175 H 03/19/17 1255: Vancomycin Trough 11.7 03/19/17 1133: POC Glucose 157 H Vital Signs Date Time Temp Pulse Resp B/P Pulse O2 O2 Flow FiO2 Ox Delivery Rate 03/20 0640 3 03/20 0555 3 03/20 0555 95 3 03/20 0533 3 03/20 0501 3 03/20 0419 3 03/20 0419 97.6 108 20 152/84 88 OXYGEN 3 03/20 0307 3 03/20 0204 3 03/20 0056 3 03/20 0021 3 03/20 0021 98.5 127 20 161/80 97 OXYGEN 3 03/19 2310 3 03/19 2210 3 03/19 2054 3 03/19 2054 98.5 105 20 140/82 94 3 03/19 2018 3 03/19 2018 98.5 105 20 140/82 94 OXYGEN 3 03/19 1903 3 03/19 1849 3 03/19 1849 84 ROOM AIR 03/19 1722 3 03/19 1617 99.0 109 22 150/87 95 OXYGEN 03/19 1510 3 03/19 1420 98.4 95 20 95/57 98 OXYGEN 03/19 1235 3 03/19 1040 3 03/19 0900 98.6 102 22 157/86 92 3 03/19 0859 3 03/19 0830 98.6 102 22 157/86 92 OXYGEN I&O Past 24 Hrs-ending at 0700 03/20 0700 Intake Total 480 Output Total 1600 Balance -1120 Last VS-Temp:97.6 B/P:152/84 Pulse:108 Resp:20 SaO2:95 OXYGEN Last weight lbs:207 oz:3 K.979 Method:Bed Scales Exam General appearance: alert, awake, no acute distress Cardiovascular: regular rate & rhythm, murmur (systolic) Respiratory: good air movement, few coarse sounds in bases ABD: normal bowel sounds, soft, no tenderness Reviewed: lab results, Sputum culture shows PCN resistant Heamophilus influenza Assessment/Plan Problem List 1. Haemophilus influenzae pneumonia Status: Acute 2. Healthcare-associated pneumonia Status: Acute 3. Acute respiratory failure with hypoxia Status: Resolved 4. Hemiparesis affecting left side as late effect of cerebrovascular accident Status: Chronic 5. GERD (gastroesophageal reflux disease) Status: Chronic 6. Chronic cystitis Status: Chronic 7. Neurogenic bladder Status: Chronic 8. Type 2 diabetes mellitus Status: Chronic 9. Carotid stenosis, left Status: Chronic 10. Osteoarthritis Status: Chronic 11. Hyperlipemia Status: Chronic 12. Hypertension Status: Chronic 13. Hypokalemia Status: Acute This inpt stay is expected to cross 2 MNs from start of care Yes Comments: Patient going to OR today for IV catheter placement. Will change antibiotics today to Rocephin monotherapy. at 0809
--- OUTSIDE RECORDS SUMMARY | 2017-03-20 08:14 | External Medical Summary Rpt | CCD ---
Author Author , [facility] Address Unknown Phone [email or web address] Immunization Name Date Rout CVX Reac Dose Comm Prov Is Faci e tion ent ider Refu lity Give sed n Infl 10-1 141 999 Hist [facility] No [facility]EX[facility] uenz 4-20 oric LISBET LISBET a, 13 al Seas Info onal rmat ion - Sour ce Unsp ecif ied PPV2 01-1 33 999 Hist [facility] No [facility] 3 4-20 oric LISBET LISBET 06 al Info rmat ion - Sour ce Unsp ecif ied
--- OUTSIDE RECORDS SUMMARY | 2017-03-20 08:14 | External Medical Summary Rpt | CCD ---
Author Author , [facility] Organization [facility] Address Unknown Phone .[employer] Purpose Continuity of Care Document - 10-23-2016 through 2016 Results Labs Lab Lab Date Result Refere Interp Status Commen Order Detail nces retati t Range on Gas panel in Arterial blood (12-21-2016 08:50) Arteria NON complet l 017 APPLICA ed patency 08:50 BLE Wrist artery --pre arteria l punctur e SOURCE RIGHT complet 017 BRACHIA ed 08:50 L Mycoplasma pneumoniae IgM Ab [Presence] in Serum by Immunoassay (12-21-2016 07:45) Mycopla NON-MAURICE NONREAC complet sma 017 CTIVE TIVE ed pneumon 07:45 iae IgM Ab [Presen ce] in Serum by Immunoa ssay Hemoglobin.gastrointestinal [Presence] in Stool (10-24-2016 18:00) Hemoglo NEGATIV NEG complet bin.gas 017 E ed trointe 18:00 stinal [Presen ce] in Stool --1st specime n Hemoglobin.gastrointestinal [Presence] in Stool (10-23-2016 10:00) Hemoglo NEGATIV NEG complet bin.gas 017 E ed trointe 10:00 stinal [Presen ce] in Stool --1st specime n
--- OUTSIDE RECORDS SUMMARY | 2017-03-20 08:14 | External Medical Summary Rpt ---
Author Author [employer], [employer] Organization [employer] Address Unknown Phone Unavailable Results Basic metabolic panel in Blood Observa Value Referen Units Interpr Notes Date tion ce etation Range Urea 7 - 18 mg/dL Normal No Dec 24 nitrogen informati 2016 6:50 [Mass/vol on in AM ume] in source Serum or data Plasma Calcium 8.5 - mg/dL Normal No Dec 24 [Mass/vol 10.1 informati 2016 6:50 ume] in on in AM Serum or source Plasma data Chloride 98 - 107 mmoL/L Normal No Dec 24 [Moles/vo informati 2016 6:50 lume] in on in AM Serum or source Plasma data Carbon 21.0 - mmoL/L Normal No Dec 24 dioxide, 32.0 informati 2016 6:50 total on in AM [Moles/vo source lume] in data Serum or Plasma Creatinin 0.55 - mg/dL Normal No Dec 24 e 1.02 informati 2016 6:50 [Mass/vol on in AM ume] in source Serum or data Plasma Creatinin 50 - 200 ML/MIN Normal No Dec 24 e renal informati 2017 6:50 clearance on in AM source predicted data by Cockcroft -Gault formula Estimated 59- ML/MIN No REFERENCE Dec 24 informati RANGE: 2017 6:50 glomerula on in >60 AM r source ML/MIN/1. filtratio data 73 SQUARE n rate METERSIf (GF this patient is -A merican, then multiply theresult by 1.210. Glucose 74 - 106 mg/dL High No Dec 24 [Mass/vol informati 2016 6:50 ume] in on in AM Serum or source Plasma data Potassium 3.5 - 5.1 mmoL/L Low No Dec 24 informati 2016 6:50 [Moles/vo on in AM lume] in source Serum or data Plasma Sodium 136 - 145 mmoL/L Normal No Dec 24 [Moles/vo informati 2016 6:50 lume] in on in AM Serum or source Plasma data CBC W Auto Differential panel in Blood Observa Value Referen Units Interpr Notes Date tion ce etation Range Basophils 0 - 0.2 K/MM3 Normal No Dec 24 inform2016 6:50 [#/volume on in AM ] in source Blood by data Automated count Basophils 0.1 - 2.0 % Normal No Dec 24 /100 informati 2017 6:50 leukocyte on in AM s in source Blood by data Automated count Eosinophi 0.0 - 0.4 K/mm3 High No Dec 24 ls informati 2016 6:50 [#/volume on in AM ] in source Blood by data Automated count Eosinophi 0.1 - % Normal No Dec 24 ls/100 12.0 informati 2016 6:50 leukocyte on in AM s in source Blood by data Automated count Granulocy 1.8 - 7.8 K/mm3 Normal No Dec 24 deanna informati 2016 6:50 [#/volume on in AM ] in source Blood by data Automated count Granulocy 37.0 - % Normal No Dec 24 deanna/100 80.0 informati 2016 6:50 leukocyte on in AM s in source Blood by data Automated count Hematocri 37.0 - % Low No Dec 24 t [Volume 47.0 informati 2016 6:50 on in AM Fraction] source of Blood data Hemoglobi 12.2 - g/dL Low No Dec 24 n 16.2 informati 2016 6:50 [Mass/vol on in AM ume] in source Blood data Lymphocyt 0.7 - 4.5 K/mm3 Normal No Dec 24 es informati 2016 6:50 [#/volume on in AM ] in source Unspecifi data ed specimen by Automated count Lymphocyt 10 - 50.0 % Normal No Dec 24 es informati 2016 6:50 [#/volume on in AM ] in source Unspecifi data ed specimen by Automated count Erythrocy 27 - 31.2 pg Normal No Dec 24 te mean informati 2016 6:50 corpuscul on in AM ar source hemoglobi data n [Entitic mass] Erythrocy 31.8 - g/dl Low No Dec 24 te mean 35.4 informati 2016 6:50 corpuscul on in AM ar source hemoglobi data n concentra tion [Mass/vol ume] by Automated count Erythrocy 82.2 - fl Normal No Osmani 20 te mean 97.8 informati 2017 6:50 corpuscul on in AM ar volume source [Entitic data volume] by Automated count Monocytes 0.1 - 1.0 K/mm3 Normal No Dec 24 informati 2016 6:50 [#/volume on in AM ] in source Blood by data Automated count Monocytes 1.7 - 9.3 % Normal No Dec 24 informati 2016 6:50 leukocyte on in AM s in source Blood by data Automated count Platelet 7.4 - fl Low No Dec 24 mean 10.4 informati 2016 6:50 volume on in AM [Entitic source volume] data in Blood by Automated count Platelets 142 - 424 K/mm3 Normal No Dec 24 informati 2016 6:50 [#/volume on in AM ] in source Blood data Erythrocy 4.2 - 5.4 M/mm3 Low No Dec 24 deanna informati 2016 6:50 [#/volume on in AM ] in source Amniotic data fluid Erythrocy 11.5 - % Normal No Dec 24 te 17.5 informati 2016 6:50 distribut on in AM ion width source [Entitic data volume] by Automated count Leukocyte 4.8 - K/MM3 Normal No Dec 24 s 10.8 informati 2016 6:50 [#/volume on in AM ] in source Blood data Glucose [Mass/volume] in Capillary blood by Glucometer Observa Value Referen Units Interpr Notes Date tion ce etation Range Glucose 70 - 110 mg/dl High No Dec 24 [Mass/vol ati 2016 6:37 ume] in on in AM Capillary source blood by data Glucomete r CBC W Auto Differential panel in Blood Observa Value Referen Units Interpr Notes Date tion ce etation Range Basophils 0 - 0.2 K/MM3 Normal No Dec 22 informati 2016 6:43 [#/volume on in AM ] in source Blood by data Automated count Basophils 0.1 - 2.0 % Normal No Dec 22 informati 2016 6:43 leukocyte on in AM s in source Blood by data Automated count Eosinophi 0.0 - 0.4 K/mm3 Normal No Dec 22 ls informati 2016 6:43 [#/volume on in AM ] in source Blood by data Automated count Eosinophi 0.1 - % Normal No Dec 22 ls/100 12.0 informati 2016 6:43 leukocyte on in AM s in source Blood by data Automated count Granulocy 1.8 - 7.8 K/mm3 Normal No Dec 22 deanna informati 2017 6:43 [#/volume on in AM ] in source Blood by data Automated count Granulocy 37.0 - % Normal No Dec 22 deanna/100 80.0 informati 2017 6:43 leukocyte on in AM s in source Blood by data Automated count Hematocri 37.0 - % Low No Dec 22 t [Volume 47.0 informati 2017 6:43 on in AM Fraction] source of Blood data Hemoglobi 12.2 - g/dL Low No Dec 22 n 16.2 informati 2017 6:43 [Mass/vol on in AM ume] in source Blood data Lymphocyt 0.7 - 4.5 K/mm3 Normal No Dec 22 es informati 2017 6:43 [#/volume on in AM ] in source Unspecifi data ed specimen by Automated count Lymphocyt 10 - 50.0 % Normal No Dec 22 es informati 2016 6:43 [#/volume on in AM ] in source Unspecifi data ed specimen by Automated count Erythrocy 27 - 31.2 pg Normal No Dec 22 te mean informati 2017 6:43 corpuscul on in AM ar source hemoglobi data n [Entitic mass] Erythrocy 31.8 - g/dl Low No Dec 22 te mean 35.4 informati 2017 6:43 corpuscul on in AM ar source hemoglobi data n concentra tion [Mass/vol ume] by Automated count Erythrocy 82.2 - fl Normal No Dec 22 te mean 97.8 informati 2016 6:43 corpuscul on in AM ar volume source [Entitic data volume] by Automated count Monocytes 0.1 - 1.0 K/mm3 Normal No Dec 22 informati 2017 6:43 [#/volume on in AM ] in source Blood by data Automated count Monocytes 1.7 - 9.3 % Normal No Dec 22 /100 informati 2017 6:43 leukocyte on in AM s in source Blood by data Automated count Platelet 7.4 - fl Normal No Dec 22 mean 10.4 informati 2017 6:43 volume on in AM [Entitic source volume] data in Blood by Automated count Platelets 142 - 424 K/mm3 Normal No Dec 22 informati 2017 6:43 [#/volume on in AM ] in source Blood data Erythrocy 4.2 - 5.4 M/mm3 Low No Dec 22 deanna informati 2017 6:43 [#/volume on in AM ] in source Amniotic data fluid Erythrocy 11.5 - % Normal No Dec 22 te 17.5 informati 2017 6:43 distribut on in AM ion width source [Entitic data volume] by Automated count Leukocyte 4.8 - K/MM3 No No Dec 22 s 10.8 informati informati 2017 6:43 [#/volume on in on in AM ] in source source Blood data data Basic metabolic panel in Blood Observa Value Referen Units Interpr Notes Date tion ce etation Range Urea 7 - 18 mg/dL Normal No Dec 22 nitrogen informati 2016 6:43 [Mass/vol on in AM ume] in source Serum or data Plasma Calcium 8.5 - mg/dL Normal No Dec 22 [Mass/vol 10.1 informati 2016 6:43 ume] in on in AM Serum or source Plasma data Chloride 98 - 107 mmoL/L Normal No Dec 22 [Moles/vo informati 2016 6:43 lume] in on in AM Serum or source Plasma data Carbon 21.0 - mmoL/L High No Dec 22 dioxide, 32.0 informati 2017 6:43 total on in AM [Moles/vo source lume] in data Serum or Plasma Creatinin 0.55 - mg/dL Normal No Dec 22 e 1.02 informati 2016 6:43 [Mass/vol on in AM ume] in source Serum or data Plasma Creatinin 50 - 200 ML/MIN Normal No Dec 22 e renal informati 2017 6:43 clearance on in AM source predicted data by Cockcroft -Gault formula Estimated 59- ML/MIN No REFERENCE Dec 22 informati RANGE: 2017 6:43 glomerula on in >60 AM r source ML/MIN/1. filtratio data 73 SQUARE n rate METERSIf (GF this patient is -A merican, then multiply theresult by 1.210. Glucose 74 - 106 mg/dL High No Dec 22 [Mass/vol informati 2016 6:43 ume] in on in AM Serum or source Plasma data Potassium 3.5 - 5.1 mmoL/L Low No Dec 22 informati 2017 6:43 [Moles/vo on in AM lume] in source Serum or data Plasma Sodium 136 - 145 mmoL/L Normal No Dec 22 [Moles/vo informati 2016 6:43 lume] in on in AM Serum or source Plasma data Glucose [Mass/volume] in Capillary blood by Glucometer Observa Value Referen Units Interpr Notes Date tion ce etation Range Glucose 70 - 110 mg/dl High No Dec 21 [Mass/vol informati 2017 7:53 ume] in on in PM Capillary source blood by data Glucomete r Gas panel in Arterial blood Observa Value Referen Units Interpr Notes Date ti ce etation Range Base -2.4-+2.3 MMOL/L High No Dec 21 excess in informati 2017 8:50 Arterial on in AM blood source data Arteria NON No No No No Dec 21 l APPLICA informa informa informa informa 2017 patency BLE tion in tion in tion in tion in 8:50 AM Wrist source source source source artery data data data data --pre arteria l punctur e Bicarbona 22.0 - MMOL/L High No Dec 21 te 26.0 informati 2016 8:50 [Moles/vo on in AM lume] in source Arterial data blood Oxygen No No No No Dec 21 content informati informati informati informati 2017 8:50 in on in on in on in on in AM Arterial source source source source blood data data data data Carbon 35.0 - MMHG High No Dec 21 dioxide 45.0 informati 2016 8:50 [Partial on in AM pressure] source in data Arterial blood pH of 7.35 - MMOL/L Normal No Dec 21 Arterial 7.45 informati 2016 8:50 blood on in AM source data Oxygen 80 - 100 MMHG High No Dec 21 [Partial informati 2017 8:50 pressure] on in AM in source Arterial data blood Oxygen 90 - 100 % Normal No Dec 21 saturatio informati 2017 8:50 n.calcula on in AM kel[place] from source oxygen data partial pressure in Arterial blood SOURCE RIGHT No No No No Dec 21 BRACHIA informa informa informa informa 2017 L tion in tion in tion in tion in 8:50 AM source source source source data data data data Carbon 23 - 27 MMOL/L High No Dec 21 dioxide, informati 2017 8:50 total on in AM [Moles/vo source lume] in data Arterial blood Mycoplasma pneumoniae IgM Ab [Presence] in Serum by Immunoassay Observa Value Referen Units Interpr Notes Date ti ce etation Range Mycopla NON-MAURICE NONREAC No No No Dec 21 sma CTIVE TIVE informa informa informa 2017 pneumon tion in tion in tion in 7:45 AM iae IgM source source source Ab data data data [Presen ce] in Serum by Immunoa ssay Natriutietic peptide B [Mass/volume] in Serum or Plasma Observa Value Referen Units Interpr Notes Date tion ce etation Range Natriutie 0 - 100 pg/mL High No Dec 21 tic informati 2016 7:45 peptide B on in AM source [Mass/vol data ume] in Serum or Plasma Lactate [Moles/volume] in Blood Observa Value Referen Units Interpr Notes Date ti ce etation Range Lactate 0.4 - 2.0 mmol/L Normal No Dec 21 [Moles/vo informati 2016 7:45 lume] in on in AM Blood source data Comprehensive metabolic 2000 panel in Serum or Plasma Observa Value Referen Units Interpr Notes Date tion ce etation Range Albumin/G 1.1 - 1.8 No Low No Dec 21 lobulin informati informati 2016 7:45 [Mass on in on in AM ratio] in source source Serum or data data Plasma Albumin 3.4 - 5.0 gm/dL Low No Dec 21 [Mass/vol informati 2016 7:45 ume] in on in AM Serum or source Plasma data Alkaline 46 - 116 U/L Normal No Dec 21 phosphata informati 2016 7:45 se on in AM [Enzymati source c data activity/ volume] in Serum or Plasma Bilirubin 0.2 - 1.0 mg/dL Normal No Dec 21 .total informati 2016 7:45 [Mass/vol on in AM ume] in source Serum or data Plasma Urea 7 - 18 mg/dL Normal No Dec 21 nitrogen informati 2016 7:45 [Mass/vol on in AM ume] in source Serum or data Plasma Calcium 8.5 - mg/dL Normal No Dec 21 [Mass/vol 10.1 informati 2016 7:45 ume] in on in AM Serum or source Plasma data Chloride 98 - 107 mmoL/L Normal No Dec 21 [Moles/vo informati 2016 7:45 lume] in on in AM Serum or source Plasma data Carbon 21.0 - mmoL/L Normal No Dec 21 dioxide, 32.0 informati 2017 7:45 total on in AM [Moles/vo source lume] in data Serum or Plasma Creatinin 0.55 - mg/dL Normal No Dec 21 e 1.02 informati 2016 7:45 [Mass/vol on in AM ume] in source Serum or data Plasma Creatinin 50 - 200 ML/MIN Normal No Dec 21 e renal informati 2016 7:45 clearance on in AM source predicted data by Cockcroft -Gault formula Estimated 59- ML/MIN No REFERENCE Dec 21 informati RANGE: 2017 7:45 glomerula on in >60 AM r source ML/MIN/1. filtratio data 73 SQUARE n rate METERSIf (GF this patient is -A merican, then multiply theresult by 1.210. Globulin 1.3 - 3.2 gm/dL High No Dec 21 [Mass/vol informati 2016 7:45 ume] in on in AM Serum source data Glucose 74 - 106 mg/dL High No Dec 21 [Mass/vol informati 2016 7:45 ume] in on in AM Serum or source Plasma data Potassium 3.5 - 5.1 mmoL/L Low No Dec 21ati 2016 7:45 [Moles/vo on in AM lume] in source Serum or data Plasma Sodium 136 - 145 mmoL/L Normal No Dec 21 [Moles/vo informati 2016 7:45 lume] in on in AM Serum or source Plasma data Aspartate 15 - 37 U/L Low No Dec 21 informati 2016 7:45 aminotran on in AM sferase source [Enzymati data c activity/ volume] in Serum or Plasma Alanine 12 - 78 U/L Normal No Dec 21 aminotran ati 2016 7:45 sferase on in AM [Enzymati source c data activity/ volume] in Serum or Plasma Protein 6.4 - 8.2 gm/dL Normal No Dec 21 [Mass/vol informati 2016 7:45 ume] in on in AM Serum or source Plasma data CBC W Auto Differential panel in Blood Observa Value Referen Units Interpr Notes Date tion ce etation Range Basophils 0 - 0.2 K/MM3 Normal No Dec 212016 7:45 [#/volume on in AM ] in source Blood by data Automated count Basophils 0.1 - 2.0 % Normal No Dec 21 /100 informati 2016 7:45 leukocyte on in AM s in source Blood by data Automated count Eosinophi 0.0 - 0.4 K/mm3 Normal No Dec 21 ls informati 2016 7:45 [#/volume on in AM ] in source Blood by data Automated count Eosinophi 0.1 - % Normal No Dec 21 ls/100 12.0 informati 2016 7:45 leukocyte on in AM s in source Blood by data Automated count Granulocy 1.8 - 7.8 K/mm3 High No Dec 21 deanna informati 2016 7:45 [#/volume on in AM ] in source Blood by data Automated count Granulocy 37.0 - % High No Dec 21 deanna/100 80.0 informati 2016 7:45 leukocyte on in AM s in source Blood by data Automated count Hematocri 37.0 - % Normal No Dec 21 t [Volume 47.0 informati 2016 7:45 on in AM Fraction] source of Blood data Hemoglobi 12.2 - g/dL Low No Dec 21 n 16.2 informati 2016 7:45 [Mass/vol on in AM ume] in source Blood data Lymphocyt 0.7 - 4.5 K/mm3 Normal No Dec 21 es informati 2016 7:45 [#/volume on in AM ] in source Unspecifi data ed specimen by Automated count Lymphocyt 10 - 50.0 % Low No Dec 21 es informati 2016 7:45 [#/volume on in AM ] in source Unspecifi data ed specimen by Automated count Erythrocy 27 - 31.2 pg Normal No Dec 21 te mean informati 2016 7:45 corpuscul on in AM ar source hemoglobi data n [Entitic mass] Erythrocy 31.8 - g/dl Low No Dec 21 te mean 35.4 informati 2016 7:45 corpuscul on in AM ar source hemoglobi data n concentra tion [Mass/vol ume] by Automated count Erythrocy 82.2 - fl Normal No Dec 21 te mean 97.8 informati 2016 7:45 corpuscul on in AM ar volume source [Entitic data volume] by Automated count Monocytes 0.1 - 1.0 K/mm3 Normal No Dec 21 informati 2016 7:45 [#/volume on in AM ] in source Blood by data Automated count Monocytes 1.7 - 9.3 % Normal No Dec 21 / informati 2016 7:45 leukocyte on in AM s in source Blood by data Automated count Platelet 7.4 - fl Low No Dec 21 mean 10.4 informati 2016 7:45 volume on in AM [Entitic source volume] data in Blood by Automated count Platelets 142 - 424 K/mm3 No No Dec 21 informati informati 2016 7:45 [#/volume on in on in AM ] in source source Blood data data Erythrocy 4.2 - 5.4 M/mm3 Normal No Dec 21 deanna informati 2016 7:45 [#/volume on in AM ] in source Amniotic data fluid Erythrocy 11.5 - % Normal No Dec 21 te 17.5 informati 2016 7:45 distribut on in AM ion width source [Entitic data volume] by Automated count Leukocyte 4.8 - K/MM3 High No Dec 21 s 10.8 informati 2016 7:45 [#/volume on in AM ] in source Blood data Hemoglobin.gastrointestinal [Presence] in Stool Observa Value Referen Units Interpr Notes Date tion ce etation Range Hemoglo NEGATIV NEG No No No October 24 bin.gas E informa informa informa 2016 trointe tion in tion in tion in 6:00 PM stinal source source source [Presen data data data ce] in Stool --1st specime n Hemoglobin.gastrointestinal [Presence] in Stool Observa Value Referen Units Interpr Notes Date tion ce etation Range Hemoglo NEGATIV NEG No No No October 23 bin.gas E informa informa informa 2016 trointe tion in tion in tion in 10:00 stinal source source source AM [Presen data data data ce] in Stool --1st specime n
--- OUTSIDE RECORDS SUMMARY | 2017-03-20 08:14 | External Medical Summary Rpt | CCD ---
Author Author , [employer] Address Unknown Phone [email or web address] Purpose Continuity of Care Document - 10-23-2016 [...]
--- OUTSIDE RECORDS SUMMARY | 2017-03-20 08:14 | External Medical Summary Rpt | CCD ---
Author Author , [employer] [facility] Address Unknown Phone [email or web address] Immunization Name Date Rout CVX Reac Dose [...]
--- OUTSIDE RECORDS SUMMARY | 2017-03-20 08:25 | External Medical Summary Rpt | CCD ---
Author Author , [employer] [facility] Address Unknown Phone [email or web address] Immunization Name Date Rout CVX Reac Dose [...]
--- OUTSIDE RECORDS SUMMARY | 2017-03-20 08:25 | External Medical Summary Rpt | CCD ---
Author Author , [employer] [facility] Address Unknown Phone [email or web address] Purpose Continuity of Care Document - 10-23-2016 through 2016 Problems Code Diagnosis DOS Provider Status G45.9 TRANSIENT CEREBRAL ISCHEMIC ATTACK, UNSPECIFIED I10 ESSENTIAL (PRIMARY) HYPERTENSIO N J18.9 PNEUMONIA, UNSPECIFIED ORGANISM K21.9 GASTRO-ESOP HAGEAL REFLUX DISEASE WITHOUT ESOPHAGITIS Z12.31 ENCNTR SCREEN MAMMOGRAM FOR MALIGNANT NEOPLASM OF BREAST Z72.0 TOBACCO USE Results Labs Lab Lab Date Result Refere Interp Status Commen Order Detail nces retati t Range on Differential panel, method unspecified - (03-17-2017 10:10) Hypochr 03-17-2 1+ complet omia 017 ed [Presen 10:10 ce] in Blood LYMPH 19 % 10% - Normal complet 017 50% ed 10:10 Platele NORMAL complet ts 017 ed [Presen 10:10 ce] in Blood by Light microsc opy Gas panel in Arterial blood (12-21-2016 08:50) [...]
--- OUTSIDE RECORDS SUMMARY | 2017-03-20 08:25 | External Medical Summary Rpt | CCD ---
Author Author , [employer] [facility] Address Unknown Phone [email or web address] Purpose Continuity of Care Document - 10-23-2016 [...]
--- OUTSIDE RECORDS SUMMARY | 2017-03-20 08:25 | External Medical Summary Rpt ---
Author Author [employer], [employer] Organization [employer] Address Unknown Phone Unavailable Results CBC W Auto Differential panel in Blood Observa Value Referen Units Interpr Notes Date tion ce etation Range Basophils 0 - 0.2 K/MM3 Normal No Mar 17 informati 2016 [#/volume on in 10:10 AM ] in source Blood by data Automated count Basophils 0.1 - 2.0 % Normal No Mar 17 informati 2016 leukocyte on in 10:10 AM s in source Blood by data Automated count Eosinophi 0.0 - 0.4 K/mm3 Normal No Mar 17 ls informati 2016 [#/volume on in 10:10 AM ] in source Blood by data Automated count Eosinophi 0.1 - % Normal No Mar 17 ls/100 12.0 informati 2016 leukocyte on in 10:10 AM s in source Blood by data Automated count Granulocy 1.8 - 7.8 K/mm3 High No Mar 17 deanna informati 2016 [#/volume on in 10:10 AM ] in source Blood by data Automated count Granulocy 37.0 - % Normal No Mar 17 deanna/100 80.0 informati 2016 leukocyte on in 10:10 AM s in source Blood by data Automated count Hematocri 37.0 - % Low No Mar 17 t [Volume 47.0 informati 2016 on in 10:10 AM Fraction] source of Blood data Hemoglobi 12.2 - g/dL Low No Mar 17 n 16.2 informati 2016 [Mass/vol on in 10:10 AM ume] in source Blood data Lymphocyt 0.7 - 4.5 K/mm3 Normal No Mar 17 es informati 2016 [#/volume on in 10:10 AM ] in source Unspecifi data ed specimen by Automated count Lymphocyt 10 - 50.0 % Normal No Mar 17 es informati 2016 [#/volume on in 10:10 AM ] in source Unspecifi data ed specimen by Automated count Erythrocy 27 - 31.2 pg Normal No Oct 11 te mean informati 2017 corpuscul on in 10:10 AM ar source hemoglobi data n [Entitic mass] Erythrocy 31.8 - g/dl Low No Mar 17 te mean 35.4 2016 corpuscul on in 10:10 AM ar source hemoglobi data n concentra tion [Mass/vol ume] by Automated count Erythrocy 82.2 - fl Normal No Mar 17 te mean 97.8 2016 corpuscul on in 10:10 AM ar volume source [Entitic data volume] by Automated count Monocytes 0.1 - 1.0 K/mm3 High No Mar 17 inform2016 [#/volume on in 10:10 AM ] in source Blood by data Automated count Monocytes 1.7 - 9.3 % Normal No Mar 172016 leukocyte on in 10:10 AM s in source Blood by data Automated count Platelet 7.4 - fl Normal No Mar 17 mean 10.4 inform2016 volume on in 10:10 AM [Entitic source volume] data in Blood by Automated count Platelets 142 - 424 K/mm3 Normal No Mar 17 inform2016 [#/volume on in 10:10 AM ] in source Blood data Erythrocy 4.2 - 5.4 M/mm3 Normal No Mar 17 deanna inform2016 [#/volume on in 10:10 AM ] in source Amniotic data fluid Erythrocy 11.5 - % Normal No Mar 17 te 17.5 2016 distribut on in 10:10 AM ion width source [Entitic data volume] by Automated count Leukocyte 4.8 - K/MM3 High No Mar 17 s 10.8 2016 [#/volume on in 10:10 AM ] in source Blood data Differential panel, method unspecified - Observa Value Referen Units Interpr Notes Date tion ce etation Range Eosinophi 0 - 3 % Normal No Mar 17 ls/100 2016 leukocyte on in 10:10 AM s in source Blood by data Manual count Hypochr 1+ No No No No Mar 17 omia informa informa informa informa 2016 [Presen tion in tion in tion in tion in 10:10 ce] in source source source source AM Blood data data data data LYMPH 19 10 - 50 % Normal No Mar 17 inform2016 tion in 10:10 source AM data Monocytes 2 - 9 % High No Mar 17 informati 2016 leukocyte on in 10:10 AM s in source Blood by data Automated count Platele NORMAL No No No No Mar 17 ts informa informa informa informa 2016 [Presen tion in tion in tion in tion in 10:10 ce] in source source source source AM Blood data data data data by Light microsc opy Neutrophi 42 - 76 % Normal No Mar 17 ls informati 2016 [#/volume on in 10:10 AM ] in source Blood by data Automated count Cells No #CELLS No No Mar 17 Counted informati informati informati 2016 Total [#] on in on in on in 10:10 AM in Blood source source source data data data Lactate [Moles/volume] in Blood Observa Value Referen Units Interpr Notes Date tion ce etation Range Lactate 0.4 - 2.0 mmol/L Normal No Mar 17 [Moles/vo informati 2016 lume] in on in 10:10 AM Blood source data Basic metabolic panel in Blood Observa Value Referen Units Interpr Notes Date ti ce etation Range Urea 7 - 18 [...] Normal No Dec 24 e renal informati 2016 6:50 clearance on in AM source predicted data by Cockcroft -Gault formula Estimated 59- ML/MIN No REFERENCE Dec 24 informati RANGE: 2017 6:50 glomerula on in >60 AM r source ML/MIN/1. filtratio data 73 SQUARE n rate METERSIf (GF this patient is -A merican, then multiply theresult by 1.210. Glucose 74 - 106 mg/dL High No Dec 24 [Mass/vol informati 2017 6:50 ume] in on in AM Serum [...] - 0.2 K/MM3 Normal No Dec 24 informati 2016 6:50 [#/volume on in AM ] in source Blood by data Automated count Basophils 0.1 - 2.0 % Normal No Dec 24 informati 2017 6:50 leukocyte on in AM s in source Blood by data Automated count Eosinophi 0.0 - 0.4 K/mm3 High No Dec 24 ls informati 2016 6:50 [#/volume on in AM ] in source Blood by data Automated count Eosinophi 0.1 - % Normal No Dec 24 ls/100 12.0 informati 2017 6:50 leukocyte on in AM s in source Blood by data Automated count Granulocy 1.8 - 7.8 K/mm3 Normal No Dec 24 deanna informati 2017 6:50 [#/volume on in AM ] in source Blood by data Automated count Granulocy 37.0 - % Normal No Dec 24 deanna/100 80.0 informati 2016 6:50 leukocyte on in AM s in source Blood by data Automated count Hematocri 37.0 - % Low No Dec 24 t [Volume 47.0 informati 2017 6:50 on in AM Fraction] source of Blood data Hemoglobi 12.2 - g/dL Low Dec 24 n 16.2 informati 2016 6:50 [...] pg Normal No Dec 24 te mean inform2016 6:50 corpuscul on in AM ar source hemoglobi data n [Entitic mass] Erythrocy 31.8 - g/dl Low No Dec 24 te mean 35.4 informati 2016 6:50 corpuscul on in AM ar source hemoglobi data n concentra tion [Mass/vol ume] by Automated count Erythrocy 82.2 - fl Normal No Dec 24 te mean 97.8 informati 2016 6:50 corpuscul on in AM ar volume source [Entitic data volume] by Automated count Monocytes 0.1 - 1.0 K/mm3 Normal No Dec 24 informati 2016 6:50 [#/volume on in AM ] in source Blood by data Automated count Monocytes 1.7 - 9.3 % Normal No Dec 24 /100 informati 2016 6:50 leukocyte on in AM s in source Blood by data Automated count Platelet 7.4 - fl Low No Dec 24 mean 10.4 informati 2016 6:50 volume on in AM [Entitic source volume] data in Blood by Automated count Platelets 142 - 424 K/mm3 Normal No Dec 242016 6:50 [#/volume on in AM ] in [...] 110 mg/dl High No Dec 24 [Mass/vol informati 2016 6:37 ume] in on in AM [...] - 2.0 % Normal No Dec 22 / informati 2017 6:43 leukocyte on in AM [...] K/mm3 Normal No Dec 22 deanna informati 2016 6:43 [#/volume on in AM ] in source Blood by data Automated count Granulocy 37.0 - % Normal No Dec 22 deanna/100 80.0 informati 2017 6:43 leukocyte on in AM s in source Blood by data Automated count Hematocri 37.0 - % Low No Dec 22 t [Volume 47.0 informati 2016 6:43 on in AM Fraction] source of Blood data Hemoglobi 12.2 - g/dL Low Dec 22 n 16.2 informati 2016 6:43 [Mass/vol on in AM ume] in source Blood data Lymphocyt 0.7 - 4.5 K/mm3 Normal No Dec 22 es informati 2016 6:43 [#/volume on in AM ] in source Unspecifi data ed specimen by Automated count Lymphocyt 10 - 50.0 % Normal No Dec 22 es informati 2016 6:43 [#/volume on in AM ] in source Unspecifi data ed specimen by Automated count Erythrocy 27 - 31.2 pg Normal Dec 22 te mean informati 2016 6:43 corpuscul on in AM ar source [...] mg/dL Normal No Dec 22 nitrogen informati 2017 6:43 [Mass/vol on in AM ume] in source Serum or data Plasma Calcium 8.5 - mg/dL Normal No Dec 22 [Mass/vol 10.1 informati 2017 6:43 ume] in on in AM Serum or source Plasma data Chloride 98 - 107 mmoL/L Normal No Dec 22 [Moles/vo informati 2016 6:43 lume] in on in AM Serum or source Plasma data Carbon 21.0 - mmoL/L High No Dec 22 dioxide, 32.0 informati 2016 6:43 total on in AM [Moles/vo source lume] in data Serum or Plasma Creatinin 0.55 - mg/dL Normal No Dec 22 e 1.02 informati 2017 6:43 [Mass/vol on in AM [...] 3.5 - 5.1 mmoL/L Low No Dec 18 informati 2016 6:43 [Moles/vo on in AM lume] in [...] mg/dl High No Dec 21 [Mass/vol informati 2016 7:53 ume] in on in PM Capillary source blood by data Glucomete r Gas panel in Arterial blood Observa Value Referen Units Interpr Notes Date ti ce etation Range Base -2.4-+2.3 MMOL/L High No Dec 21 excess in informati 2016 8:50 Arterial on in AM blood source [...] Interpr Notes Date tion ce etation Range Mycopla NON-MAURICE NONREAC No [...] Interpr Notes Date tion ce etation Range Lactate 0.4 - 2.0 [...] Normal No Dec 21 dioxide, 32.0 informati 2016 7:45 total on in AM [Moles/vo source [...] 3.5 - 5.1 mmoL/L Low No Dec 21 informati 2016 7:45 [Moles/vo on in AM lume] in source Serum or data Plasma Sodium 136 - 145 mmoL/L Normal No Dec 21 [Moles/vo informati 2017 7:45 lume] in on in AM Serum or source Plasma data Aspartate 15 - 37 U/L Low No Dec 21 informati 2016 7:45 aminotran on in AM sferase source [Enzymati data c activity/ volume] in Serum or Plasma Alanine 12 - 78 U/L Normal No Dec 21 aminotran informati 2016 7:45 sferase on in AM [Enzymati [...] 0 - 0.2 K/MM3 Normal No Dec 21 informati 2016 7:45 [#/volume on in AM ] in source Blood by data Automated count Basophils 0.1 - 2.0 % Normal No Dec 21 / informati [...] - 9.3 % Normal No Dec 21 /100 informati [...] October 24 bin.gas E informa informa informa 2017 trointe tion in tion in tion in [...]
--- OUTSIDE RECORDS SUMMARY | 2017-03-20 08:25 | External Medical Summary Rpt | CCD ---
Author Author , [employer] Address Unknown Phone [email or web address] Immunization Name Date Rout CVX Reac Dose Comm Prov Is Faci e tion ent ider Refu lity Give sed n Infl 10-1 141 999 Hist LEXC No LEXC uenz 4-20 oric LISBET LISEBT a, 13 al Seas Info onal rmat ion - Sour ce Unsp ecif ied PPV2 01-1 33 999 Hist LEXC No LEXC 3 4-20 oric LISBET LISBET 06 al Info rmat ion - Sour ce Unsp ecif ied
--- NOTE | 2017-03-20 09:18 | RADIOLOGY REPORT PS360 ---
FLUORO GUIDE FOR CV ACCESS HISTORY: GROSHONG PLACEMENT ORDERING PHYSICIAN: Stalin Breen MD PATIENT AGE: 81 years Fluoroscopy time: 2 minutes and 9 seconds COMPARISON: None FINDINGS/impression: Fluoroscopy used for guidance for central venous catheter placement with a single image submitted showing the catheter tip overlying the mid thoracic spine area with moderate patient rotation
--- NOTE | 2017-03-20 09:20 | Operative Note ---
Surgeon/Diagnoses Surgeon/Cigar Packer And Picker(s) Date of procedure: 03/20/17 Surgeon: MD Ana Juarez Cigar Packer And Picker(s): Bob Hightower Diagnoses Pre-op diagnosis: Inadequate venous access Complicated pneumonia Post-op diagnosis Same Procedure Procedure Procedure: Tunneled catheter (Groshong) placement utilizing RIGHT internal jugular access Indications: VINICIO BACON is a 81 year-old Female with a history of complicated pneumonia requiring triple antibiotic therapy and inadequate venous access. Findings: Catheter placement confirmed fluoroscopically. Catheter flushed without difficulty. Procedure Description: After informed consent was obtained, the patient was taken to the operating room and placed in a supine position. General anesthesia was induced and her RIGHT chest and neck were prepped and draped in a sterile fashion. A large bore needle was utilized to access the RIGHT internal jugular vein. A guidewire was placed in position. The dilator and sheath was then placed over the guidewire. The dilator and guidewire were removed. The Groshong catheter was placed in position through the dilator. The dilator was removed. Fluoroscopic guidance was utilized to confirm appropriate placement of the Groshong. The catheter was then exited through a RIGHT upper chest stab incision utilizing the tunneling device. The catheter was secured in position and dressings were applied. The catheter was flushed easily with saline (to be connected to ongoing IV fluids in recovery). EBL (ml): 5 Anesthesia: Gen. with laryngeal mask airway Implants: 8 Arabic Groshong catheter Complications: No immediate Specimens: None Disposition Disposition: Stable to recovery from where she will be transferred back to the floor. at 0920
--- NOTE | 2017-03-20 09:42 | Anesthesia Record ---
Anesthesia Record Part II Discharge time: 949 Destination: Second Floor PACU nurse assessment review? Yes Patient is: Nasal O2, Stable Anesthesia complications? No at 0993
--- NOTE | 2017-03-20 09:42 | Anesthesia Record ---
Anesthesia Record Part I Total IV fluids: 400 EBL (ml): 5 Urine Output: 200 B/P: 160/79 % SaO2: 95 Pulse: 97 Resps: 16 Temp: 97.2 Patient is: Awake, Nasal O2, Stable Stable to PACU at: 0920 at 0942
--- NOTE | 2017-03-20 10:00 | RADIOLOGY REPORT PS360 ---
CHEST-PORTABLE HISTORY: Groshong catheter placement; pneumonia ORDERING PHYSICIAN: Stalin Breen MD PATIENT AGE: 81 years COMPARISON: 03/17/2017 were FINDINGS: There is cardiomegaly without failure. Small left effusion is noted. There is prominence of the bronchovascular markings. Right IJ Groshong catheter is present with the tip in region of SVC. No evidence of pneumothorax. Persistent but improving left lower lobe pneumonia IMPRESSION: 1. Right IJ Groshong catheter tip in region of SVC. 2. Cardiomegaly with chronic changes in left pleural effusion. Left lower lobe pneumonia has shown some improvement
[2017-03-21] VITALS (8 sets, daily range): BP systolic 107–156; BP diastolic 71–89
[2017-03-21 06:59] LABS: HEMOGLOBIN 10.8 g/dL (12.2-16.2); LYMPH # 2.2 K/mm3 (0.7-4.5); LYMPH % 21.8 % (10-50.0)
--- NOTE | 2017-03-21 08:30 | POST-OP PROGRESS NOTE ---
Post Op Subjective Data Patient is post-op day 1 Subjective data: Feels "fine". Post op objective data Vitals,I&O,and Labs: Vital signs, intake and output,and available lab data for the last 24 hours is as noted below. Vital Signs Date Time Temp Pulse Resp B/P Pulse O2 O2 Flow FiO2 Ox Delivery Rate 03/21 0658 2 03/21 0619 2 03/21 0609 2 03/21 0609 90 OXYGEN 2 03/21 0502 2 03/21 0416 3 03/21 0416 98.3 98 22 154/71 94 OXYGEN 3 03/21 0310 92 ROOM AIR 03/21 0240 3 03/21 0219 3 03/21 0103 3 03/21 0005 3 03/21 0005 98.9 132 24 145/86 96 OXYGEN 3 03/20 2310 3 03/20 2215 3 03/205 3 03/20 2027 3 03/20 2027 98.4 96 24 141/65 91 3 03/20 2006 3 03/20 2006 98.4 96 24 141/65 91 OXYGEN 3 03/20 1857 3 03/20 1715 3 03/20 1647 99.6 104 20 125/75 92 3 03/20 1600 3 03/20 1545 100.0 103 22 130/61 97 3 03/20 1511 3 03/20 1445 99.3 95 16 117/55 98 3 03/20 1351 3 03/20 1345 99.2 85 20 126/64 100 3 03/20 1300 3 03/20 1245 98.8 80 20 120/65 97 3 03/20 1215 98.6 90 18 137/71 97 3 03/20 1200 3 03/20 1145 98.7 89 18 145/75 94 3 03/20 1119 3 03/20 1115 98.7 101 20 142/79 100 3 03/20 1045 98.6 98 18 169/79 96 3 03/20 1030 97.8 101 20 167/83 100 3 03/20 1027 97.2 03/20 1017 98.3 90 20 157/78 95 3 03/20 1015 98.5 94 20 164/85 100 3 03/20 1005 108 20 152/84 95 03/20 1000 3 03/20 1000 98.3 90 20 157/78 95 3 03/20 0950 97.6 96 16 152/89 96 OXYGEN 03/20 0942 97.2 97 16 160/79 03/20 0940 96 16 158/79 93 OXYGEN 03/20 0930 98 16 163/87 95 OXYGEN 03/20 0920 97.2 97 16 160/79 95 OXYGEN 03/20 1500 03/20 2300 03/21 0700 Intake Total 315 120 806 Output Total 225 500 550 Balance 90 -380 256 Intake, IV 75 446 Intake, Oral 240 120 360 Intake, Tube 0 Irrigant Output, 0 Emesis Output, 0 Estimated Blood Loss Output, Other 0 Output, Urine 225 500 550 Patient 93.98 kg 95.028 kg Weight Laboratory Tests Test Result Date Time Chemistry Sodium (mmoL/L) 145 03/21 612 Potassium (mmoL/L) 3.8 03/21 612 Chloride (mmoL/L) 107 03/21 612 Carbon Dioxide (mmoL/L) 31 03/21 612 BUN (mg/dL) 10 03/21 612 Creatinine (mg/dL) 0.8 03/21 612 Estimated Creat Clear (ML/MIN) 83 03/21 612 Estimated GFR (MDRD) (ML/MIN) 69 03/21 612 Glucose (mg/dL) 145 03/21 612 POC Glucose (mg/dl) 173 03/20 2027 Lactic Acid (mmol/L) 1.5 03/17 1010 Calcium (mg/dL) 8.8 03/21 612 Total Bilirubin (mg/dL) 0.6 03/17 1010 AST (U/L) 15 03/17 1010 ALT (U/L) 20 03/17 1010 Alkaline Phosphatase (U/L) 119 03/17 1010 Creatine Kinase (U/L) 79 03/17 1010 CK-MB (CK-2) Rel Index (U/L) 0.6 03/17 1010 CK and CKMB Interp (ng/mL) < 0.5 03/17 1010 Troponin I (ng/mL) < 0.02 03/17 1010 Total Protein (gm/dL) 8.3 03/17 1010 Albumin (gm/dL) 2.8 03/17 1010 Globulin (gm/dL) 5.5 03/17 1010 Albumin/Globulin Ratio 0.5 03/17 1010 Hematology WBC (K/MM3) 10.2 10/15 0612 RBC (M/mm3) 4.02 03/21 612 Hgb (g/dL) 10.8 03/21 612 Hct (%) 36.0 03/21 612 MCV (fl) 89.6 03/21 612 RDW (%) 14.7 03/21 612 Plt Count (K/mm3) 411 03/21 612 MPV (fl) 7.6 03/21 612 Gran % (%) 66.7 03/21 612 Gran # (K/mm3) 6.8 03/21 612 Total Counted (#CELLS) 100 03/17 1010 Lymphocytes % (%) 21.8 03/21 612 Monocytes % (%) 6.6 03/21 612 Eosinophils % (%) 4.1 03/21 612 Basophils % (%) 0.8 03/21 612 Neutrophils (%) 70 03/17 1010 Lymphocytes (Manual) (%) 19 03/17 1010 Lymphocytes # (K/mm3) 2.2 03/21 612 Monocytes (Manual) (%) 10 03/17 1010 Monocytes # (K/mm3) 0.7 03/21 612 Eosinophils # (K/mm3) 0.4 03/21 612 Eosinophils # (Manual) (%) 1 03/17 1010 Basophils # (K/MM3) 0.1 03/21 612 Platelet Estimate NORMAL 03/17 1010 Hypochromasia 1+ 03/17 1010 PUBS MCHC (g/dl) 30.0 03/21 612 Immunology MCH (pg) 26.9 03/21 612 Toxicology Vancomycin Trough (mcg/mL) 11.7 03/19 1255 Additional data: Grotasiaong functioning without difficulty Physical Exam VS/I&O Vital Signs Date Time Temp Pulse Resp B/P Pulse O2 O2 Flow FiO2 Ox Delivery Rate 03/21 0658 2 03/21 0619 2 03/21 0609 2 03/21 0609 90 OXYGEN 2 03/21 0502 2 03/21 0416 3 03/21 0416 98.3 98 22 154/71 94 OXYGEN 3 03/21 0310 92 ROOM AIR 03/21 0240 3 03/21 0219 3 03/21 0103 3 03/21 0005 3 03/21 0005 98.9 132 24 145/86 96 OXYGEN 3 03/20 2310 3 03/20 2215 3 03/20 2055 3 03/20 2027 3 03/20 2027 98.4 96 24 141/65 91 3 03/20 2006 3 03/20 2006 98.4 96 24 141/65 91 OXYGEN 3 03/20 1857 3 03/20 1715 3 03/20 1647 99.6 104 20 125/75 92 3 03/20 1600 3 03/20 1545 100.0 103 22 130/61 97 3 03/20 1511 3 03/20 1445 99.3 95 16 117/55 98 3 03/20 1351 3 03/20 1345 99.2 85 20 126/64 100 3 03/20 1300 3 03/20 1245 98.8 80 20 120/65 97 3 03/20 1215 98.6 90 18 137/71 97 3 03/20 1200 3 03/20 1145 98.7 89 18 145/75 94 3 03/20 1119 3 03/20 1115 98.7 101 20 142/79 100 3 03/20 1045 98.6 98 18 169/79 96 3 03/20 1030 97.8 101 20 167/83 100 3 03/20 1027 97.2 03/20 1017 98.3 90 20 157/78 95 3 03/20 1015 98.5 94 20 164/85 100 3 03/20 1005 108 20 152/84 95 03/20 1000 3 03/20 1000 98.3 90 20 157/78 95 3 03/20 0950 97.6 96 16 152/89 96 OXYGEN 03/20 0942 97.2 97 16 160/79 03/20 0940 96 16 158/79 93 OXYGEN 03/20 0930 98 16 163/87 95 OXYGEN 03/20 0920 97.2 97 16 160/79 95 OXYGEN I&O 03/21 0700 Intake Total 1241 Output Total 1275 Balance -34 Intake, IV 521 Intake, Oral 720 Intake, Tube 0 Irrigant Output, 0 Emesis Output, 0 Estimated Blood Loss Output, Other 0 Output, Urine 1275 Patient 95.028 kg Weight Exam General appearance no acute distress Respiratory no distress Cardiovascular regular rate and rhythm Post op patient plan Diagnoses: Inadequate venous access-overall, doing well status post Groshong placement Pneumonia Plan: continue care as per primary service This inpt stay is expected to cross 2 MNs from start of care Yes at 0830
--- NOTE | 2017-03-21 10:56 | ACUTE CARE PROGRESS NOTE (QUA) ---
Progress Notes Subjective Date 03/21/17 Time 1054 Note Patient with no new complaints, nurse reported a slight temp elevation yesterday. Objective Findings Laboratory Tests 03/21/17 0612: Sodium 145, Potassium 3.8, Chloride 107, Carbon Dioxide 31, BUN 10, Creatinine 0.8, Estimated Creat Clear 83, Estimated GFR (MDRD) 69, Glucose 145 H, Calcium 8.8, WBC 10.2, RBC 4.02 L, Hgb 10.8 L, Hct 36.0 L, MCV 89.6, RDW 14.7, Plt Count 411, MPV 7.6, Gran % 66.7, Gran # 6.8, Lymphocytes % 21.8, Monocytes % 6.6 , Eosinophils % 4.1, Basophils % 0.8, Lymphocytes # 2.2, Monocytes # 0.7, Eosinophils # 0.4, Basophils # 0.1, PUBS MCHC 30.0 L, MCH 26.9 L 03/20/17 2027: POC Glucose 173 H 03/20/17 1706: POC Glucose 190 H 03/20/17 1129: POC Glucose 167 H Vital Signs Date Time Temp Pulse Resp B/P Pulse O2 O2 Flow FiO2 Ox Delivery Rate 03/21 1050 2 03/21 1034 92 OXYGEN 2 03/21 0915 2 03/21 0830 98.5 91 22 154/85 92 OXYGEN 03/21 0805 98.5 91 22 154/85 92 2 03/21 0658 2 03/21 0619 2 03/21 0609 2 03/21 0609 90 OXYGEN 2 03/21 0502 2 03/21 0416 3 03/21 0416 98.3 98 22 154/71 94 OXYGEN 3 03/21 0310 92 ROOM AIR 03/21 0240 3 03/21 0219 3 03/21 0103 3 03/21 0005 3 03/21 0005 98.9 132 24 145/86 96 OXYGEN 3 03/20 2310 3 03/20 2215 3 03/20 2055 3 03/20 2027 3 03/20 2027 98.4 96 24 141/65 91 3 03/20 2006 3 03/20 2006 98.4 96 24 141/65 91 OXYGEN 3 03/20 1857 3 03/20 1715 3 03/20 1647 99.6 104 20 125/75 92 3 03/20 1600 3 03/20 1545 100.0 103 22 130/61 97 3 03/20 1511 3 03/20 1445 99.3 95 16 117/55 98 3 03/20 1351 3 03/20 1345 99.2 85 20 126/64 100 3 03/20 1300 3 03/20 1245 98.8 80 20 120/65 97 3 03/20 1215 98.6 90 18 137/71 97 3 03/20 1200 3 03/20 1145 98.7 89 18 145/75 94 3 03/20 1119 3 03/20 1115 98.7 101 20 142/79 100 3 I&O Past 24 Hrs-ending at 0700 03/21 0700 Intake Total 1241 Output Total 1275 Balance -34 Last VS-Temp:98.5 B/P:154/85 Pulse:91 Resp:22 SaO2:92 OXYGEN Last weight lbs:209 oz:8 K.028 Method:Bed Scales Exam General appearance: alert, no acute distress Cardiovascular: regular rate & rhythm Respiratory: good air movement (few coarse breath sounds) Assessment/Plan Problem List 1. Haemophilus influenzae pneumonia Status: Acute 2. Healthcare-associated pneumonia Status: Acute 3. Acute respiratory failure with hypoxia Status: Resolved 4. Hemiparesis affecting left side as late effect of cerebrovascular accident Status: Chronic 5. GERD (gastroesophageal reflux disease) Status: Chronic 6. Chronic cystitis Status: Chronic 7. Neurogenic bladder Status: Chronic 8. Type 2 diabetes mellitus Status: Chronic 9. Carotid stenosis, left Status: Chronic 10. Osteoarthritis Status: Chronic 11. Hyperlipemia Status: Chronic 12. Hypertension Status: Chronic 13. Hypokalemia Status: Acute This inpt stay is expected to cross 2 MNs from start of care Yes Comments: Continue current treatment, monitor for fever today, may be able to discharge soon. at 1059
[2017-03-22 00:25] VITALS: BP 151/80
[2017-03-22 04:18] VITALS: BP 154/87
[2017-03-22 08:00] VITALS: BP 124/79
[2017-03-22 08:12] VITALS: BP 154/87
--- NOTE | 2017-03-22 08:39 | ACUTE CARE PROGRESS NOTE (QUA) ---
Progress Notes Subjective Date 03/22/17 Time 0730 Note Would like to go back to [place]. She can sleep better there; still has a productive cough; + SOB; no CP; eating OK; ellis remains in place; has not been OOB-they use a lift at [place] to get her up Had a fever last PM Objective Findings Laboratory Tests 03/22/17 0628: POC Glucose 158 H 03/21/17 2022: POC Glucose 171 H 03/21/17 1726: POC Glucose 160 H 03/21/17 1126: POC Glucose 205 H Vital Signs Date Time Temp Pulse Resp B/P Pulse O2 O2 Flow FiO2 Ox Delivery Rate 03/22 08 98.4 92 20 154/87 95 2 03/22 0800 2 03/22 0605 2 03/22 0605 95 OXYGEN 2 03/22 0601 2 03/22 0538 2 03/22 0519 2 03/22 0418 2 03/22 0418 98.4 92 20 154/87 93 OXYGEN 2 03/22 0321 2 03/22 0313 92 ROOM AIR 03/22 0204 2 03/22 0105 2 03/22 0025 2 03/22 0025 98.4 95 20 151/80 95 OXYGEN 2 03/21 2312 2 03/21 2147 2 03/21 2110 2 03/21 2055 2 03/21 2021 2 03/21 2021 100.3 99 20 156/89 100 OXYGEN 2 03/21 1922 2 03/21 192 100.3 99 20 156/89 100 2 03/21 1627 100.3 93 20 152/80 90 OXYGEN 03/21 1515 2 03/21 1315 2 03/21 1311 92 OXYGEN 2 03/21 1200 98.5 107 20 107/74 90 OXYGEN 03/21 1117 2 03/21 1050 2 03/21 1034 92 OXYGEN 2 03/21 0915 2 Current Medications Insulin Human [rDNA origin] 0 .STK-MED ONE SC (DC) Acetaminophen 0 .STK-MED ONE PO (DC) Guaifenesin/Dextromethorphan 0 .STK-MED ONE .ROUTE (DC) Guaifenesin/Dextromethorphan 0 .STK-MED ONE .ROUTE (DC) Acetaminophen 0 .STK-MED ONE PO (DC) Insulin Human [rDNA origin] 0 .STK-MED ONE SC (DC) Insulin Human [rDNA origin] 0 .STK-MED ONE SC (DC) Acetaminophen 0 .STK-MED ONE PO (DC) Sodium Chloride 1,000 ML .Q25H IV Ceftriaxone Sodium 1 GM 1300 IV Sodium Chloride 50 ML Miscellaneous 0.04 EACH QID OP Potassium Chloride 20 MEQ DAILY PO Acetaminophen 500 MG QHS PO Diphenhydramine HCl 25 MG QHS PO Amlodipine Besylate 10 MG DAILY PO Aspirin 325 MG DAILY PO Clopidogrel Bisulfate 75 MG DAILY PO Sodium Chloride 10 ML PRN PRN IV Patient Own Medication 1 MG QHS PO Pravastatin Sodium 20 MG QHS PO Trazodone HCl 100 MG QHS PO Guaifenesin/Dextromethorphan 10 ML Q6HP PRN PO Albuterol/Ipratropium 3 ML QIDRT INH Diagnostic Test (Pha) 1 EACH W/MEALS&HS FS Insulin Human [rDNA origin] SEE ADMIN CRITERIA FOR MEDIUM INTENSITY W/MEALS&HS SC Acetaminophen 650 MG Q4HP PRN PO Influenza Virus Vaccine Quadrival 0.5 ML PRN PRN IM Nicotine 21 MG DAILYP PRN TD Sodium Chloride 10 ML PRN PRN IV 03/21 1500 1015 2300 10/16 0700 Intake Total 600 582 286 Output Total 800 1300 Balance 600 -218 -1014 Intake, IV 342 286 Intake, Oral 600 240 Output, Urine 800 1300 Patient 209 lb Weight Last VS-Temp:98.4 B/P:154/87 Pulse:92 Resp:20 SaO2:95 OXYGEN Last weight lbs:209 oz:7 K.999 Method:Bed Scales 03/20/17 CXR IMPRESSION: 1. Right IJ Groshong catheter tip in region of SVC. 2. Cardiomegaly with chronic changes in left pleural effusion. Left lower lobe pneumonia has shown some improvement Exam General appearance: alert, no acute distress, awakened for exam Cardiovascular: regular rate & rhythm Respiratory: bilateral rhonchi; congested cough ABD: soft, no tenderness, obese Extremities: no peripheral edema, no calf tenderness Assessment/Plan Problem List 1. Haemophilus influenzae pneumonia Status: Acute 2. Healthcare-associated pneumonia Status: Acute 3. Acute respiratory failure with hypoxia Status: Resolved 4. Hemiparesis affecting left side as late effect of cerebrovascular accident Status: Chronic 5. GERD (gastroesophageal reflux disease) Status: Chronic 6. Chronic cystitis Status: Chronic 7. Neurogenic bladder Status: Chronic 8. Type 2 diabetes mellitus Status: Chronic 9. Carotid stenosis, left Status: Chronic 10. Osteoarthritis Status: Chronic 11. Hyperlipemia Status: Chronic 12. Hypertension Status: Chronic 13. Hypokalemia Status: Acute Patient condition Improved Plan: will discharge back to [place] This inpt stay is expected to cross 2 MNs from start of care Yes (Radha Chowdhury APRN) Subjective Date 03/22/17 Assessment/Plan Problem List 1. Haemophilus influenzae pneumonia Status: Acute 2. Healthcare-associated pneumonia Status: Acute 3. Acute respiratory failure with hypoxia Status: Resolved 4. Hemiparesis affecting left side as late effect of cerebrovascular accident Status: Chronic 5. GERD (gastroesophageal reflux disease) Status: Chronic 6. Chronic cystitis Status: Chronic 7. Neurogenic bladder Status: Chronic 8. Type 2 diabetes mellitus Status: Chronic 9. Carotid stenosis, left Status: Chronic 10. Osteoarthritis Status: Chronic 11. Hyperlipemia Status: Chronic 12. Hypertension Status: Chronic 13. Hypokalemia Status: Acute Plan: Pt seen and examined this AM. SHe is improved. Organism identified as H. flu and she is on appropriate antibiotics. She is eager to return to [place] and she is stable for discharge on continued antibiotics (Marian Bangura MD) at [phone] at [phone]
[2017-03-22] MEDS ORDERED: CEFUROXIME AXE500 MG PO (08:41)
--- NOTE | 2017-03-22 09:54 | DISCHARGE SUMMARY STANDARD ---
Discharge Summary ([facility]2) Date of admission: 03/17/17 Date of discharge: 03/22/17 Problem List: 1. Haemophilus influenzae pneumonia 2. Healthcare-associated pneumonia 3. Acute respiratory failure with hypoxia 4. Hemiparesis affecting left side as late effect of cerebrovascular accident 5. GERD (gastroesophageal reflux disease) 6. Chronic cystitis 7. Neurogenic bladder 8. Type 2 diabetes mellitus 9. Carotid stenosis, left 10. Osteoarthritis 11. Hyperlipemia 12. Hypertension 13. Hypokalemia History of present illness: History of Present Illness: Ms Franklin is an 81 year old female resident of [place] with an extensive medical history to include T2DM, Stroke with left hemiparesis, carotid artery disease, hyperlipidemia, OA, and neurogenic bladder with ellis cath and frequent UTI. She had a cough for about a week with progressive SOB. She was on daily neb treatments and was hospitalized this past December with pneumonia. O2 sats were in the 70's. She seemed to be more dyspneic. Staff was directed to bring her to [facility] for evaluation. Patient also noted that she was not eating or drinking well. Evaluation in the ER revealed Pneumonia. WBC's were elevated. She was admitted for IV ABX and continued neb TX's. Exam on admission: Vital signs: 1ST Vital Signs Result Date Time Pulse Ox 83 03/17 1007 B/P 135/50 03/17 1007 Temp 100.0 03/17 1007 Pulse 105 03/17 1007 Resp 24 03/17 1007 O2 Flow Rate 3 03/17 1036 Exam: General appearance: alert, awake, no acute distress Eyes: anicteric, pupils reactive to light ENT: mucous membranes moist, pharynx normal Neck: no carotid bruit, full range of motion, lymphadenopathy (absent), thyroid (normal) Cardiovascular: regular rate & rhythm, murmur Respiratory: coarse rhonchi throughout ABD: no guarding, bowel sounds present, obese Extremities: no peripheral edema, left sided weakness Neuro: alert, oriented, speech clear Hospital Course: On admission patient was started on IVF, ABX and duonebs. Sputum cultures revealed H Influenzae and ABX were changed. Groshong catheter was placed by Dr. Reis on 03/20/17 for IV access. She made gradual improvement and continued with a productive cough; Chest sounds and CXR did improve. She was eating without problems. On 03/22/17 she was anxious to return to [place] and was stable to be discharged on this date with PO ABX. Jamesong cath will be left in place for now. Laboratory data this visit: 03/18/17 0628: POC Glucose 140 H 03/17/17 2040: POC Glucose 142 H 03/17/17 1653: POC Glucose 143 H 03/17/17 1010: Lactic Acid 1.5 03/17/17 1010: Sodium 138, Potassium 3.9, Chloride 100, Carbon Dioxide 30, BUN 15, Creatinine 1.0, Estimated Creat Clear 78, Estimated GFR (MDRD) 53 L, Glucose 154 H, Calcium 8.9, Total Bilirubin 0.6, AST 15, ALT 20, Alkaline Phosphatase 119 H, Creatine Kinase 79, CK-MB (CK-2) Rel Index 0.6, CK and CKMB Interp < 0.5, Troponin I < 0.02, Total Protein 8.3 H, Albumin 2.8 L, Globulin 5.5 H, Albumin/Globulin Ratio 0.5 L, WBC 17.2 H, RBC 4.21, Hgb 11.5 L, Hct 36.8 L, MCV 87.5, RDW 14.8, Plt Count 344, MPV 7.7, Gran % 75.9, Gran # 13.1 H, Total Counted 100, Lymphocytes % 14.7, Monocytes % 8.1, Eosinophils % 0.9, Basophils % 0.3, Neutrophils 70, Lymphocytes (Manual) 19, Lymphocytes # 2.5, Monocytes ( Manual) 10 H, Monocytes # 1.4 H, Eosinophils # 0.2, Eosinophils # (Manual) 1, Basophils # 0.1, Platelet Estimate NORMAL, Hypochromasia 1+, PUBS MCHC 31.4 L, MCH 27.4 03/19/17 0735: Sodium 142, Potassium 3.3 L, Chloride 105, Carbon Dioxide 33 H, BUN 9, Creatinine 0.8, Estimated Creat Clear 84, Estimated GFR (MDRD) 69, Glucose 149 H, Calcium 9.1, WBC 10.4, RBC 4.05 L, Hgb 11.0 L, Hct 35.1 L, MCV 86.6, RDW 14.5, Plt Count 398, MPV 7.7, Gran % 71.4, Gran # 7.4, Lymphocytes % 17.9, Monocytes % 7.1, Eosinophils % 2.9, Basophils % 0.6, Lymphocytes # 1.9, Monocytes # 0.7, Eosinophils # 0.3, Basophils # 0.1, PUBS MCHC 31.2 L, MCH 27.0 03/21/17 0612: Sodium 145, Potassium 3.8, Chloride 107, Carbon Dioxide 31, BUN 10, Creatinine 0.8, Estimated Creat Clear 83, Estimated GFR (MDRD) 69, Glucose 145 H, Calcium 8.8, WBC 10.2, RBC 4.02 L, Hgb 10.8 L, Hct 36.0 L, MCV 89.6, RDW 14.7, Plt Count 411, MPV 7.6, Gran % 66.7, Gran # 6.8, Lymphocytes % 21.8, Monocytes % 6.6 , Eosinophils % 4.1, Basophils % 0.8, Lymphocytes # 2.2, Monocytes # 0.7, Eosinophils # 0.4, Basophils # 0.1, PUBS MCHC 30.0 L, MCH 26.9 L 03/20/17 2027: POC Glucose 173 H 03/20/17 1706: POC Glucose 190 H 03/20/17 1129: POC Glucose 167 H > SPUTUM CULTURE Final 03/20/17-711 Organism 1 HAEMOPHILUS INFLUENZAE I BETA LACTAMASE: POSITIVE (RESISTANT TO PENICILLINS) 1. HAEMOPHILUS INFLUENZAE I RX AB ROUTE COST I ------ -- ----- ------ TRIMETH/SULFAMETH (BACTRIM) S AMPICILLIN R * AMOXOC/CLAV ACID (AUGMENTIN) R * AZITHROMYCIN (ZITHROMAX) S CEFTRIAXONE S TETRACYCLINE I Imagin03/17/17 CXR IMPRESSION: Findings suggestive of a left lower lobe pneumonia with probable reactive pleural effusion, suggest clinical correlation follow-up PA and lateral films following treatment and if there is not significant interval improvement and consider follow-up CT scan chest for better evaluation 03/20/17 CXR IMPRESSION: 1. Right IJ Groshong catheter tip in region of SVC. 2. Cardiomegaly with chronic changes in left pleural effusion. Left lower lobe pneumonia has shown some improvement Discharge medications: Continue taking these medications: Diphenhydramine Citrate/Ibup (Advil Pm 38 Mg-200 Mg) 1 TAB TAB 1 TABLET ORAL AT BEDTIME NEEDED as needed for INSOMNIA/PAIN Amlodipine Besylate (Amlodipine) 10 MG TABLET 10 MILLIGRAM ORAL DAILY PRAVASTATIN SODIUM (Pravastatin Sodium) 40 MG TABLET 20 MILLIGRAM ORAL AT BEDTIME NIGHTLY ASPIRIN (Aspirin 325MG) 325 MG TABLET 325 MILLIGRAM ORAL DAILY Qty = 30 CLOPIDOGREL BISULFATE (Clopidogrel) 75 MG TABLET 75 MILLIGRAM ORAL DAILY Qty = 30 CRANBERRY FRUIT CONCENTRATE (Azo Cranberry) 250 MG TAB.CHEW 250 MILLIGRAM ORAL DAILY Bisacodyl (Laxative Suppository) 10 MG SUPP.RECT 1 SUPP PER RECTUM DAILY NEEDED as needed for CONSTIPATION Celecoxib (Celebrex 200MG) 200 MG CAPSULE 200 MILLIGRAM ORAL DAILY Loratadine (Claritin 10MG) 10 MG TABLET 10 MILLIGRAM ORAL DAILY Docusate Sodium (Colace Clear) 50 MG CAPSULE 50 MILLIGRAM ORAL DAILY ALBUTEROL-IPRATROPIUM (Iprat-Albut 0.5-3(2.5) MG/3 Ml) 3 ML AMPUL.NEB 1 NEB INHALATION FOUR TIMES A DAY 11/14/1303/20/2000 GABAPENTIN (Gabapentin) 400 MG CAPSULE 400 MILLIGRAM ORAL THREE TIMES A DAY Linaclotide (Linzess 290MCG) 290 MCG CAPSULE 290 MICROGRAM ORAL DAILY Magnesium Hydroxide (Milk Of Magnesia U/D 30ML) 400 MG/5 ML ORAL.SUSP 30 MILLILITER ORAL DAILY NEEDED as needed for CONSTIPATION POLYETHYLENE GLYCOL (Miralax) 17 GM POWD.PACK 17 GRAM ORAL DAILY Nitroglycerin (Nitrostat) 0.4 MG TAB.SUBL 0.4 MILLIGRAM SUBLINGUAL DAILY NEEDED as needed for CHEST PAIN Instructions: GIVE EVERY 5 MINUTES X3 FOR CHEST PAIN INSULIN ASPART (Novolog) 100 UNIT/1 ML CARTRIDGE 0 SUB-Q FOUR TIMES A DAY Omeprazole (Omeprazole 20MG) 20 MG CAPSULE.DR 20 MILLIGRAM ORAL DAILY Guaifenesin (Siltussin SA) 100 MG/5 ML LIQUID 5 MILLILITER ORAL EVERY 6 HOURS NEEDED as needed for COUGH Vit A/Vit C/Vit E/Zinc/Copper (Preservision Areds Tablet) 1 EACH TABLET 1 EACH ORAL DAILY Vitamin B12 (Cyanocobalamin Injection) 1,000 MCG/ML VIAL 1,000 MICROGRAM INTRAMUSC Q WEEK (168 HRS) Instructions: ON THE 10TH OF EVERY MONTH Fluticasone Propionate (Flonase 50 Mcg Nasal [place]) 16 GM SPRAY.SUSP 2 SPRAY Nasal AT BEDTIME NIGHTLY Ferrous Sulfate (Ferrous Sulfate 325MG) 325 MG TABLET 325 MILLIGRAM ORAL DAILY Ketorolac Tromethamine (Ketorolac 0.5% Ophth Soln 5ML) 5 ML DROPS 0.4 MILLILITER OPHTHALMIC FOUR TIMES A DAY METFORMIN HCL (Metformin 1000MG) 1,000 MG TABLET 1,000 MILLIGRAM ORAL TWICE A DAY TRAMADOL HCL (Tramadol) 50 MG TABLET 50 MILLIGRAM ORAL FOUR TIMES A DAY NEEDED as needed for PAIN Ascorbic Acid (Vitamin C) 500 MG TABLET 500 MILLIGRAM ORAL DAILY Fluticasone/Vilanterol (Breo Ellipta 200-25 Mcg INH) 1 EACH BLST.W.DEV 1 PUFF INHALATION DAILY Trazodone Hcl (Trazodone HCl) 100 MG TABLET 100 MILLIGRAM ORAL AT BEDTIME NIGHTLY Menthol (Biofreeze) 118 ML GEL..ML. 1 APPLICATION TOPICAL THREE TIMES A DAY NEEDED as needed for INFLAMMATION Ketoconazole (Nizoral 2% Cream; 15GRAM Tube) 15 GM CREAM..G. 1 APPLICATION TOPICAL TWICE A DAY NEEDED as needed for ANTIFUNGAL NYSTATIN (Nystatin Cr 100,000 Units/Gm 30GM) 15 GM CREAM..G. 1 APPLICATION External THREE TIMES A DAY NEEDED as needed for YEAST Melatonin (Melatonin) 1 MG TABLET 1 MILLIGRAM ORAL AT BEDTIME NIGHTLY Start taking the following new medications: Cefuroxime Axetil (Cefuroxime) 500 MG TABLET 500 MILLIGRAM ORAL TWICE A DAY Qty = 20 No Refills Disposition: Discharged back to [place] in stable and satisfactory condition. To continue with meds as per reconciliation sheet. To continue with diabetic diet. To be OOB as much as she tolerates FU at [place] per Dr. Bangura at [phone]
[2017-03-22 12:00] VITALS: BP 156/78
[2017-03-22 12:03] VITALS: BP 154/87
== END 2017-03-22 13:02 | DRG 193 ==
LOC: ER 10:04 → 2ND 11:21 → ER 11:21 → 2ND 12:13
PROVIDERS: Emergency Medicine; Family Medicine
DX: J14 Pneumonia due to Hemophilus influenzae (principal); J96.01 Acute respiratory failure with hypoxia; I69.354 Hemiplegia and hemiparesis following cerebral infarction affecting left non-dominant side; E11.9 Type 2 diabetes mellitus without complications; I10 Essential (primary) hypertension; Y95 Nosocomial condition; N31.9 Neuromuscular dysfunction of bladder, unspecified; M19.90 Unspecified osteoarthritis, unspecified site; E87.6 Hypokalemia; C44.92 Squamous cell carcinoma of skin, unspecified; C44.91 Basal cell carcinoma of skin, unspecified
CPT/HCPCS: C1751; J0692; J1642; J2405; J3370; Q9967